=== PATIENT | female | born 1990 | race Caucasian/White ===

== ENCOUNTER 2016-04-19 08:04 | Outpatient (RCR) | payer BC, OTHER, MEDICAID ==
[~2016-04-19 08:04] MED LIST: ACHD5005 PO; ALLERGY MED; ANTIBIOTIC; AZIT500T PO; BISM262T13 PO; BUTA1TAB55 PO; CEFU500T PO; CEPH500C PO; CLIN-62; CRS350T PO; CYCL10TA9 PO; CYCL5TAB PO; DOCU100C37 PO; DOCU100T7 PO; ESCI10TA PO; ESCI5TAB PO; ESCT10T PO; FAMO20TA5; FAMO20TA5 PO; FLUO20CA25 PO; HYDR-3583 PO; HYDR-3812 PO; HYDR1CAP2 PO; HYDR50CA PO; IBP600T1 PO; IBP800T PO; IBUP-1780 PO; LNS30CCR PO; MECL-106 PO; METH5TAB5 PO; METR70GE17 VG; MULT-963 PO; NAPR-243 PO; NAPR500T PO; NAPR550T PO; NITR-65 PO; NITR100C3 PO; OMEP-10 GT; OMEP-10 PO; OMEP20CA6; OMEP20CA6 PO; OMEP20TA33 PO; OMEP40CA36 PO; ONDA8TAB13 PO; OXYC-465 PO; PNT40TEC PO; PNV; PNV1TAB.5 PO; POTA10TA10 PO; PRD20T PO; PREN1TAB25 PO; PREN1TAB39; PREN1TAB39 PO; RNT150T PO; TRAM50TA2 PO; TRM50T PO; Tylenol #3 PO; [UNRECOGNIZED DRUG - CODE] PO; [UNRECOGNIZED DRUG - CODE] PO; [UNRECOGNIZED DRUG - OTHER]
== END 2016-07-18 | disposition home or self-care (01) ==
LOC: CARD 08:04
PROVIDERS: ATTEND Nurse Practitioner Family
DX: R00.2 Palpitations (principal); R42 Dizziness and giddiness
CPT/HCPCS: 93225; 93226

== ENCOUNTER → 2016-05-30 | Outpatient (CLI) | payer BC, OTHER, MEDICAID ==
[2016-06-01 09:15] LABS: NUMBER HOURS COLLECT 24 HOURS; URINE VOLUME CAT 1900 ML; URINE VOLUME REF 1900 ML
[2016-06-03 16:26] LABS: NOREPINEPHRINE RANDOM URINE 18 ug/L
[2016-06-03 16:27] LABS: EPINEPHERINE URINE 4 UG/DAY (1-7)
[2016-06-03 16:28] LABS: CREATININE CAT FR MG/DL 69 MG/DL
[2016-06-03 16:29] LABS: CATECHOLAMINES URINE INTERP SEE FOOTNOTE; DOPAMINE RATIO 114 UG/G CRT (0-250); NOREPINEPHRINE RATIO 26 UG/G CRT (0-45)
[2016-06-03 16:30] LABS: CREATININE CATECHOLAMINES MG/D 1311 MG/D (700-1600)
[2016-06-07 08:33] LABS: METANEPHRINES URINE 91 ug/day (39-143); NORMETANEPHRINES RATIO 181 UG/G CRT (0-400)
[2016-06-07 08:34] LABS: NORMETANEPHRINES URINE 247 ug/day (109-393)
[2016-06-07 08:35] LABS: NETANEPHRINES INTERP SEE FOOTNOTE
[2016-06-07 08:36] LABS: METANEPHRINES RATIO 67 UG/G CRT (0-300)
[2016-06-07 08:37] LABS: CREATININE METANEPHRINES MG/DL 72 MG/DL
[2016-06-07 08:38] LABS: META CREAT URINE 1368 MG/D (700-1600)
[2016-06-07 08:45] LABS: MISC LAB TEST & RESULT 24 HR HISTAMINE
== END ==
LOC: LABNPT 12:47
PROVIDERS: ATTEND Family Medicine
DX: R40.1 Stupor (principal)
CPT/HCPCS: 82384; 82570; 83088; 83835

== ENCOUNTER → 2016-06-01 | Outpatient (CLI) | payer BC, MEDICAID ==
[2016-06-01 17:31] LABS: MEAN PLATELET VOLUME 11.1 FL (7.4-10.4); RED BLOOD COUNT 4.57 10^6/uL (4.35-5.85); RED CELL DISTRIBUTION WIDTH 12.7 % (10.0-14.5); WHITE BLOOD COUNT 9.9 10^3/uL (4.3-11.0)
[2016-06-01 18:07] LABS: THYROID STIMULATING HORMONE 0.84 UIU/ML (0.35-4.94)
[2016-06-07 08:02] LABS: TRYPTAS 4.4 ug/L (<=10.9)
== END ==
LOC: LAB 16:56
PROVIDERS: ATTEND Internal Medicine Endocrinology, Diabetes & Metabolism
DX: R40.1 Stupor (principal)
CPT/HCPCS: 36415; 83036; 83520; 84439; 84443; 84480; 85027

== ENCOUNTER 2016-08-09 20:35 | Outpatient (CLI) | payer BC, MEDICAID | END 2016-08-10 06:30 | disposition home or self-care (01) | LOC: SLEEP 20:35 | PROVIDERS: ATTEND Psychiatry & Neurology Neurology | DX: G47.10 Hypersomnia, unspecified (principal); R06.83 Snoring; G47.61 Periodic limb movement disorder; R42 Dizziness and giddiness | CPT/HCPCS: 95810 ==

== ENCOUNTER 2016-12-02 17:31 | Outpatient (CLI) | payer BC, MEDICAID ==
[2016-12-02] MEDS: ONDANSETRON 4 MG/2 ML (SDV) Z0FRAN IVP ONE ×2 (17:45→18:45)
[2016-12-02 18:17] LABS: BASOPHILS % (AUTO) 0 % (0-10); EOSINOPHILS # (AUTO) 0.1 10^3/uL (0.0-0.3); EOSINOPHILS % (AUTO) 1 % (0-10); LYMPHOCYTES # (AUTO) 2.7 X 10^3 (1.0-4.0); LYMPHOCYTES % (AUTO) 23 % (12-44); MEAN CORPUSCULAR HEMOGLOBIN 30 PG (25-34); MEAN CORPUSCULAR HGB CONC 34 G/DL (32-36); MEAN CORPUSCULAR VOLUME 88 FL (80-99); MEAN PLATELET VOLUME 11.4 FL (7.4-10.4); MONOCYTES # (AUTO) 1.3 X 10^3 (0.0-1.0); MONOCYTES % (AUTO) 10 % (0-12); NEUTROPHILS # (AUTO) 8.1 X 10^3 (1.8-7.8); NEUTROPHILS % (AUTO) 67 % (42-75); PLATELET COUNT 285 10^3/uL (130-400); RED BLOOD COUNT 4.55 10^6/uL (4.35-5.85); RED CELL DISTRIBUTION WIDTH 13.7 % (10.0-14.5); WHITE BLOOD COUNT 12.2 10^3/uL (4.3-11.0)
[2016-12-02 18:20] VITALS: BP 138/92
[2016-12-02 18:41] LABS: ALANINE AMINOTRANSFERASE 16 U/L (0-55); ALBUMIN 3.8 GM/DL (3.2-4.5); ANION GAP 9 MMOL/L (5-14); ASPARTATE AMINO TRANSFERASE 13 U/L (5-34); BILIRUBIN,TOTAL 0.3 MG/DL (0.1-1.0); BLOOD UREA NITROGEN 10 MG/DL (7-18); BUN/CREATININE RATIO 13; CALCIUM 8.9 MG/DL (8.5-10.1); CARBON DIOXIDE 21 MMOL/L (21-32); CHLORIDE 108 MMOL/L (98-107); CREATININE SERUM 0.75 MG/DL (0.60-1.30); GFR ESTIMATED > 60; GLUCOSE 84 MG/DL (70-105); POTASSIUM 3.4 MMOL/L (3.6-5.0); SODIUM 138 MMOL/L (135-145)
[2016-12-02] MEDS: D5 LR IV SOLUTION 1,000 ML IV SCH ×2 (18:45→22:48)
[2016-12-02 18:54] LABS: BILIRUBIN,URINE NEGATIVE (NEGATIVE); KETONES,URINE NEGATIVE (NEGATIVE); LEUKOCYTE ESTERASE ,URINE NEGATIVE (NEGATIVE); NITRITE,URINE NEGATIVE (NEGATIVE); PH,URINE 6 (5-9); PROTEIN,URINE 1+ (NEGATIVE); UROBILINOGEN,URINE 1 MG/DL (NORMAL)
[2016-12-02 19:12] LABS: WBC,URINE RARE /HPF
[2016-12-02 20:00] VITALS: BP 136/81
[2016-12-02] MEDS ORDERED: ACETAMINOPHEN 500 MG TAB (TYLENOL) PO PRN (21:30)
[2016-12-02] MEDS ORDERED: ONDANSETRON 8 MG (ZOFRAN) ORAL DISSOLVE TAB PO PRN (21:30)
[2016-12-02 23:50] VITALS: BP 128/71
[2016-12-03] MEDS: D5 LR IV SOLUTION 1,000 ML IV SCH ×2 (00:56→06:02)
[2016-12-03 03:31] VITALS: BP 117/67
--- NOTE | 2016-12-03 07:19 | History & Physical ---
History and Physical Date Seen by Provider: Dec 03, 2016 Time Seen by Provider: 07:16 this patient is a 26-year-old white female admitted last evening at 7+ weeks gestation with hyperemesis gravidarum. She also was experiencing persistent unrelenting diarrhea. she denied ruptured membranes or bleeding. She's had no other problems with his to date. Allergies are to penicillin Medications are vitamins and likely just Past medical history, past surgical history, obstetric history, family history, and social histories are per the antepartum record Laboratory Tests Test 12/02/16 18:10 12/02/16 18:45 Range/Units White Blood Count 12.2 H 4.3-11.0 10^3/uL Red Blood Count 4.55 4.35-5.85 10^6/uL Hemoglobin 13.5 11.5-16.0 G/DL Hematocrit 40 35-52 % Mean Corpuscular Volume 88 80-99 FL Mean Corpuscular Hemoglobin 30 25-34 PG Mean Corpuscular Hemoglobin Concent 34 32-36 G/DL Red Cell Distribution Width 13.7 10.0-14.5 % Platelet Count 285 130-400 10^3/uL Mean Platelet Volume 11.4 H 7.4-10.4 FL Neutrophils (%) (Auto) 67 42-75 % Lymphocytes (%) (Auto) 23 12-44 % Monocytes (%) (Auto) 10 0-12 % Eosinophils (%) (Auto) 1 0-10 % Basophils (%) (Auto) 0 0-10 % Neutrophils # (Auto) 8.1 H 1.8-7.8 X 10^3 Lymphocytes # (Auto) 2.7 1.0-4.0 X 10^3 Monocytes # (Auto) 1.3 H 0.0-1.0 X 10^3 Eosinophils # (Auto) 0.1 0.0-0.3 10^3/uL Basophils # (Auto) 0.0 0.0-0.1 10^3/uL Sodium Level 138 135-145 MMOL/L Potassium Level 3.4 L 3.6-5.0 MMOL/L Chloride Level 108 H 98-107 MMOL/L Carbon Dioxide Level 21 21-32 MMOL/L Anion Gap 9 5-14 MMOL/L Blood Urea Nitrogen 10 7-18 MG/DL Creatinine 0.75 0.60-1.30 MG/DL Estimat Glomerular Filtration Rate > 60 BUN/Creatinine Ratio 13 Glucose Level 84 70-105 MG/DL Calcium Level 8.9 8.5-10.1 MG/DL Total Bilirubin 0.3 0.1-1.0 MG/DL Aspartate Amino Transf (AST/SGOT) 13 5-34 U/L Alanine Aminotransferase (ALT/SGPT) 16 0-55 U/L Alkaline Phosphatase 76 40-136 U/L Total Protein 7.0 6.4-8.2 GM/DL Albumin 3.8 3.2-4.5 GM/DL Urine Color YELLOW Urine Clarity CLEAR Urine pH 6 5-9 Urine Specific [place] 1.025 H 1.016-1.022 Urine Protein 1+ H NEGATIVE Urine Glucose (UA) NEGATIVE NEGATIVE Urine Ketones NEGATIVE NEGATIVE Urine Nitrite NEGATIVE NEGATIVE Urine Bilirubin NEGATIVE NEGATIVE Urine Urobilinogen 1 NORMAL MG/DL Urine Leukocyte Esterase NEGATIVE NEGATIVE Urine RBC (Auto) NEGATIVE NEGATIVE Urine RBC NONE /HPF Urine WBC RARE /HPF Urine Squamous Epithelial Cells 2-5 /HPF Urine Crystals NONE /LPF Urine Bacteria NEGATIVE /HPF Urine Casts NONE /LPF Urine Mucus LARGE H /LPF Urine Culture Indicated NO lab work is as noted. Sodium was a bit low. The urine is quite concentrated. Vital signs are as follows Vital Signs Date Time Temp Pulse Resp B/P (MAP) Pulse Ox O2 Delivery O2 Flow Rate FiO2 12/03/16 03:31 98.2 70 20 117/67 100 Room Air 12/02/16 23:50 98.9 83 20 128/71 100 Room Air 12/02/16 20:00 98.0 82 20 136/81 100 Room Air 12/02/16 18:20 98.9 95 20 138/92 98 Room Air I & O 12/03/16 07:00 Intake Total 3050 ml Output Total 1375 ml Balance 1675 ml physical exam HEENT exam is normal Neck is supple no lymphadenopathy no thyromegaly Abdomen is soft nontender nondistended Extremities show no clubbing cyanosis. There is no Homans sign. Pelvic exam is deferred Assessment and plan 7+ week gestation with hyperemesis gravidarum complicated likely by viral gastroenteritis. Patient is markedly improved with hydration and with IV antiemetics. She is tolerating some oral intake now. We will allow discharge home with her to continue her likely descent and Zofran ODT. hyperemesis gravidarum Allergies and Home Medications Allergies Coded Allergies: Penicillins (Unverified Allergy, Mild, 09/13/08) Home Medications Cefuroxime Axetil 500 Mg Tablet, 500 MG PO BID, #14 Prescribed by: TIAGO PEREZ on 03/29/16 2231 Escitalopram Oxalate 10 Mg Tablet, 10 MG PO DAILY, (Reported) Hydroxyzine Pamoate 50 Mg Capsule, 50 MG PO Q6H, #15 Prescribed by: MADELYN MCCLELLAND on 01/07/16 0056 Meclizine HCl 25 Mg Tablet, 25 MG PO TID PRN for DIZZINESS, (Reported) Methimazole 5 Mg Tablet, 15 MG PO Q8H, (Reported) Omeprazole 40 Mg Capsule.dr, 40 MG PO DAILY, (Reported) Omeprazole 40 Mg Capsule.dr, 40 MG PO AC, (Reported) Potassium Chloride 10 Meq Tablet.er, 40 MEQ PO DAILY for 2 Days Prescribed by: TIAGO PEERZ on 12/14/15 1429 DORENE DONG MD Dec 03, 2016 7:19 am
[2016-12-03] MEDS ORDERED: ONDA8TAB13 PO (07:21)
--- NOTE | 2016-12-03 07:22 | Discharge Instructions ---
Discharge Instructions Discharge Medications New, Converted or Re-Newed RX: Other Patient Instructions Patient Instructions: as directed Return to The Hospital For: as directed Activity & Diet Discharge Diet: No Restrictions Activity as Tolerated: Yes Orders-Post D/C & Referrals return to clinic as scheduled for her OB Return to clinic for any persistent/unrelenting nausea vomiting and/or diarrhea DORENE DONG MD Dec 03, 2016 7:22 am
[2016-12-03] MEDS ORDERED: DOXY1TAB3 PO (07:59)
[2016-12-03] MEDS ORDERED: PREN-37 PO (07:59)
[2016-12-03] MEDS ORDERED: DULO60CA6 PO (08:00)
[2016-12-03 08:07] VITALS: BP 128/71
== END 2016-12-03 08:20 | disposition home or self-care (01) ==
LOC: WSo 17:31 → LDRP 17:33 → WSo 12-03 08:20
PROVIDERS: ATTEND Obstetrics & Gynecology
DX: O21.0 Mild hyperemesis gravidarum (principal); Z3A.01 Less than 8 weeks gestation of pregnancy
CPT/HCPCS: 36415; 80053; 81000; 85025; 87088; 96361; 96374; 99214

== ENCOUNTER 2016-12-25 20:55 | Outpatient (CLI) | payer BC, MEDICAID ==
[~2016-12-25 20:55] MED LIST changes: +DOXY1TAB3 PO; +DULO60CA6 PO; +PREN-37 PO
[2016-12-25 21:15] VITALS: BP 142/74
[2016-12-25] MEDS ORDERED: D5 LR IV SOLUTION 1,000 ML IV ONE ×2 (21:27→22:15)
[2016-12-25] MEDS ORDERED: ONDANSETRON 4 MG/2 ML (SDV) Z0FRAN ONE (21:27)
[2016-12-25] MEDS ORDERED: ONDANSETRON 4 MG/2 ML (SDV) Z0FRAN IVP ONE ×2 (22:15)
[2016-12-25 22:16] LABS: BASOPHILS % (AUTO) 0 % (0-10); EOSINOPHILS # (AUTO) 0.1 10^3/uL (0.0-0.3); EOSINOPHILS % (AUTO) 1 % (0-10); LYMPHOCYTES # (AUTO) 2.5 X 10^3 (1.0-4.0); LYMPHOCYTES % (AUTO) 27 % (12-44); MEAN CORPUSCULAR HEMOGLOBIN 30 PG (25-34); MEAN CORPUSCULAR HGB CONC 34 G/DL (32-36); MEAN CORPUSCULAR VOLUME 88 FL (80-99); MEAN PLATELET VOLUME 11.6 FL (7.4-10.4); MONOCYTES # (AUTO) 0.8 X 10^3 (0.0-1.0); MONOCYTES % (AUTO) 9 % (0-12); NEUTROPHILS % (AUTO) 63 % (42-75); PLATELET COUNT 306 10^3/uL (130-400); RED BLOOD COUNT 4.44 10^6/uL (4.35-5.85); RED CELL DISTRIBUTION WIDTH 13.5 % (10.0-14.5); WHITE BLOOD COUNT 9.5 10^3/uL (4.3-11.0)
[2016-12-25 22:16] LABS: BILIRUBIN,URINE NEGATIVE (NEGATIVE); KETONES,URINE 1+ (NEGATIVE); LEUKOCYTE ESTERASE ,URINE NEGATIVE (NEGATIVE); NITRITE,URINE NEGATIVE (NEGATIVE); PH,URINE 5 (5-9); PROTEIN,URINE 1+ (NEGATIVE); UROBILINOGEN,URINE 1 MG/DL (NORMAL)
[2016-12-25 22:23] LABS: WBC,URINE RARE /HPF
[2016-12-25] MEDS ORDERED: D5 LR IV SOLUTION 1,000 ML IV SCH (23:45)
--- NOTE | 2016-12-27 13:22 | Physician Query-Final Dx ---
JEREMIAH WILSON 12/27/16 1322: Clinic Account Progress/Dx Physician Query: Please give diagnosis Date of Service Dec 25, 2016 at 20:55 DORENE DONG MD 12/27/16 1438: Clinic Account Progress/Dx DIAGNOSIS: Diagnosis hyperemesis due to JEREMIAH WILSON Dec 27, 2016 13:22 DORENE DONG MD Dec 27, 2016 14:38
== END 2016-12-26 00:45 | disposition home or self-care (01) ==
LOC: WSo 20:55 → LDRP 20:55 → WSo 12-26 00:45
PROVIDERS: ATTEND Obstetrics & Gynecology
DX: O21.0 Mild hyperemesis gravidarum (principal); Z3A.11 11 weeks gestation of pregnancy
CPT/HCPCS: 36415; 81000; 85025; 96361; 96374; 96376; 99213

== ENCOUNTER 2017-03-05 02:33 | Emergency (ER) | payer BC, MEDICAID ==
[~2017-03-05] VITALS: Ht 160 cm; Wt 101.6 kg
[2017-03-05] MEDS ORDERED: BENZONATATE 100 MG (TESSALON) CAPSULE PO ONE (04:12)
--- NOTE | 2017-03-05 04:12 | ED Cough/URI ---
General Chief Complaint: Cardiac/General Problems Stated Complaint: POSS PNEUMONIA,BP 153/96,STS HAS WALKING PNA Nursing Triage Note: PT AMBULATED TO ROOM. PT STATES SINCE APPROX. 0200 TODAY SHE HAS BEEN HAVING CHEST BURNING AND TREMORS AND HAD A HIGH BLOOD PRESSURE OF 153/83. PT STATES SHE DOESN'T USUALLY SMOKE BUT SHE DID HAVE 4 CIGERETTES TODAY. PT STATES SHE WAS SEEN BY A DR. AND SHE DOES HAVE PNEUMONIA. Allergies and Home Medications Allergies Coded Allergies: Penicillins (Unverified Allergy, Mild, 09/13/08) Home Medications Doxylamine/Pyridoxine HCl 1 Each Tablet.dr, 1 EACH PO QID PRN for NAUSEA/ VOMITING-1ST LINE, (Reported) Ondansetron 8 Mg Tab.rapdis, 8 MG PO Q6H PRN for NAUSEA/VOMITING-1ST LINE, #20 Prescribed by: DORENE FUENTES on 12/03/16 0721 Vit/Iron Fumarate/FA 1 Each Tablet, 1 EACH PO, (Reported) Past Zoqcxcw-Dpnusg-Sjymul Hx Patient Social History Alcohol Use: Denies Use Recreational Drug Use: No Smoking Status: Former Smoker Type Used: Cigarettes Former Smoker, Quit: May 16, 2013 2nd Hand Smoke Exposure: No Recent Foreign Travel: No Contact w/Someone Who Travel: No Recent Infectious Disease Expo: No Recent Hopitalizations: No Physical Abuse: No Sexual Abuse: No Immunizations Up To Date Tetanus Booster (TDap): More than 5yrs PED Vaccines UTD: No Date of Influenza Vaccine: Feb 13, 2015 Seasonal Allergies Seasonal Allergies: No Surgeries History of Surgeries: Yes (egd, colonoscopy) Surgeries: Appendectomy, Section, Gallbladder Respiratory History of Respiratory Disorde: No Currently Using CPAP: No Currently Using BIPAP: No Cardiovascular History of Cardiac Disorders: Yes (SEES [employer] [facility] DUE TO MOTHER HAVING CHF AT YOUNG AGE) Cardiac Disorders: Heart Murmur Neurological History of Neurological Disord: No Reproductive System Hx Reproductive Disorders: No Sexually Transmitted Disease: No HIV/AIDS: No Female Reproductive Disorders: Denies Genitourinary History of Genitourinary Disor: No Gastrointestinal History of Gastrointestinal Di: Yes Gastrointestinal Disorders: Gastroesophageal Reflux Musculoskeletal History of Musculoskeletal Dis: No Endocrine History of Endocrine Disorders: Yes (undiagnosed thyriod issue, due to see a statistics teacher) HEENT History of HEENT Disorders: No Loss of Vision: Denies Hearing Impairment: Denies Cancer History of Cancer: No Psychosocial History of Psychiatric Problem: Yes Behavioral Health Disorders: Anxiety, Depression Suicide Risk Score: 0 Integumentary History of Skin or Integumenta: No Blood Transfusions History of Blood Disorders: No Adverse Reaction to a Blood Tr: No Family Medical History Significant Family History: No Pertinent Family Hx, Diabetes Family Medial History: Cardiovascular disease 19 MOTHER, G8 BROTHER Hypercholesterolemia 19 MOTHER, Hypertension 19 MOTHER, Thyroid disease G8 BROTHER Physical Exam Vital Signs Vital Sign - Last 12Hours 03/05/17 02:53 Temp 98.0 Pulse 98 Resp 20 B/P (MAP) 155/90 Pulse Ox 100 O2 Delivery Room Air Capillary Refill : Less Than 3 Seconds Progress/Results/Core Measures Results/Orders Micro Results Microbiology 03/05/17 Influenza Types A,B Antigen (YURY) - Final, Complete My Orders Orders - MADELYN MCCLELLAND DO Influenza A And B Antigens (03/05/17 03:04) Chest Pa/Lat (2 View) (03/05/17 03:04) Rocephin 1000mg Im (03/05/17 04:15) Lidocaine 1% Injection (Xylocaine 1% Inj (03/05/17 04:15) Benzonatate Capsule (Tessalon Perles) (03/05/17 09:00) Vital Signs/I&O Vital Sign - Last 12Hours 03/05/17 02:53 Temp 98.0 Pulse 98 Resp 20 B/P (MAP) 155/90 Pulse Ox 100 O2 Delivery Room Air Blood Pressure Mean: 111 Departure Impression Impression: Primary Impression: Acute bronchitis Additional Impression: Sinusitis Disposition: 01 HOME, SELF-CARE Condition: Stable Departure-Patient Inst. Referrals: JANIE MANCIA MD (PCP/Family) Primary Care Physician Patient Instructions: Acute Bronchitis, Adult (DC), Sinusitis, Adult (DC) Add. Discharge Instructions: CONTINUE DOXYCYCLINE STOP SUDAFED IF IT IS CAUSING ANXIETY OVER THE COUNTER CLARITIN 10 MG OR ZYRTEC 10 MG DAILY FOR NASAL DRAINAGE TYLENOL AND MOTRIN NEEDED FOR PAIN OR FEVER FOLLOW UP WITH YOUR DR ON TUESDAY IF NO BETTER All discharge instructions reviewed with patient and/or family. Voiced understanding. Scripts Fluticasone Propionate (Flonase Allergy Relief) 9.9 Ml [place].susp 2 SPRAYS NS BID, #1 SPRAY Prov: MADELYN MCCLELLAND DO 03/05/17 Prednisone (Prednisone) 10 Mg Tab 30 MG PO DAILY, #9 TAB Prov: MADELYN MCCLELLAND DO 03/05/17 Benzonatate (Tessalon Perle) 100 Mg Capsule 1-2 TAB PO TID for Cough, #30 CAP Prov: MADELYN MCCLELLAND DO 03/05/17 Guaifenesin/Dextromethorphan (Mucinex Dm ER 1,200-60 mg Tab) 1 Each Tbmp.12hr 1 EACH PO BID for 10 Days, #20 EA Prov: MADELYN MCCLELLAND DO 03/05/17 MADELYN MCCLELLAND DO Mar 05, 2017 04:11
[2017-03-05] MEDS ORDERED: FLUT9.9S NS (04:15)
[2017-03-05] MEDS ORDERED: BENZ-13 PO (04:15)
[2017-03-05] MEDS ORDERED: PRD10T PO (04:15)
[2017-03-05] MEDS ORDERED: LIDOCAINE 1% INJ 20 ML (XYLOCAINE) VIAL INJ ONE (04:15)
[2017-03-05] MEDS ORDERED: GUAI1TBM19 PO (04:15)
[2017-03-05] MEDS ORDERED: cefTRIAXone 1 GM (ROCEPHIN) VIAL IM ONE (04:15)
[2017-03-05 04:34] VITALS: BP 119/80
--- NOTE | 2017-03-05 07:33 | Diagnostic Imaging Report ---
INDICATION: Chest pain COMPARISON: 04/16/2016 FINDINGS: Two views of the chest were obtained. Heart size is normal. The pulmonary vessels appear unremarkable. There is no pneumothorax, mediastinal widening or pleural fluid demonstrated. The lungs are clear. The osseous structures appear unremarkable. IMPRESSION: Negative chest Dictated by: Dictated on workstation # [id number]
[2017-03-05] MEDS ORDERED: BENZONATATE 100 MG (TESSALON) CAPSULE PO SCH (09:00)
== END 2017-03-05 04:34 | disposition home or self-care (01) ==
LOC: EDUNIT# 02:33 → ER 02:36
DX: J20.9 Acute bronchitis, unspecified (principal); J32.9 Chronic sinusitis, unspecified; F41.9 Anxiety disorder, unspecified; F32.9 Major depressive disorder, single episode, unspecified; K21.9 Gastro-esophageal reflux disease without esophagitis; Z90.49 Acquired absence of other specified parts of digestive tract; Z87.891 Personal history of nicotine dependence; Z82.49 Family history of ischemic heart disease and other diseases of the circulatory system
CPT/HCPCS: 71020; 87804; 96372; 99284

== ENCOUNTER 2017-04-04 16:36 | Emergency (ER) | payer BC, MEDICAID ==
[~2017-04-04] VITALS: Ht 160 cm; Wt 108.9 kg
[~2017-04-04 16:36] MED LIST changes: +BENZ-13 PO; +FLUT9.9S NS; +GUAI1TBM19 PO; +PRD10T PO
--- NOTE | 2017-04-04 17:42 | ED General ---
General Chief Complaint: Chest Pain Stated Complaint: CP/SOB Nursing Triage Note: PATIENT STATES THAT SHE WOKE UP IN THE MIDDLE OF THE NIGHT WITH SHARP PAIN IN HER LEFT CHEST. SHE IS UNSURE IF THE PAIN IS CONSTANT. SHE STATES SHE "HAS NOT FELT RIGHT ALL DAY." PATIENT WAS TEARFUL TODAY DURING ASSESSMENT AND STATED "IM REALLY STRESSED OUT." SHE ALSO NOTED THAT SHE IS DUE TO SEE HER RESEARCH ATTORNEY. SHE DOES NOT HAVE A HX OF HEART ISSUES BUT HER MOTHER OF CHF AT A YOUNG AGE AND SHE SEES CARDIOLOGY PREVENTATIVELY. Nursing Sepsis Screen: No Definite Risk Source of Information: Patient Exam Limitations: No Limitations History of Present Illness Time Seen by Provider: 17:41 Allergies and Home Medications Allergies Coded Allergies: Penicillins (Unverified Allergy, Mild, 09/13/08) Home Medications Benzonatate 100 Mg Capsule, 1-2 TAB PO TID, #30 Prescribed by: MADELYN MCCLELLAND on 03/05/17 0415 Doxylamine/Pyridoxine HCl 1 Each Tablet.dr, 1 EACH PO QID PRN for NAUSEA/ VOMITING-1ST LINE, (Reported) Fluticasone Propionate 9.9 Ml [place].susp, 2 SPRAYS NS BID, #1 Prescribed by: MADELYN MCCLELLAND on 03/05/17 0415 Guaifenesin/Dextromethorphan 1 Each Tbmp.12hr, 1 EACH PO BID for 10 Days, #20 Prescribed by: MADELYN MCCLELLAND on 03/05/17 041 Hydroxyzine Pamoate 25 Mg Capsule, 25 MG PO Q6H PRN for ANXIETY, #30 Ref 0 Prescribed by: YOANA SILVA on 04/04/172116 Ondansetron 8 Mg Tab.rapdis, 8 MG PO Q6H PRN for NAUSEA/VOMITING-1ST LINE, #20 Prescribed by: DORENE FUENTES on 12/03/16 0721 Prednisone 10 Mg Tab, 30 MG PO DAILY, #9 Prescribed by: MADELYN MCCLELLAND on 03/05/17 0415 Vit/Iron Fumarate/FA 1 Each Tablet, 1 EACH PO, (Reported) Past Xtuzbaw-Fryvua-Aruwij Hx Patient Social History Alcohol Use: Denies Use Recreational Drug Use: No Type Used: Cigarettes Former Smoker, Quit: May 16, 2013 2nd Hand Smoke Exposure: No Recent Foreign Travel: No Contact w/Someone Who Travel: No Recent Infectious Disease Expo: No Recent Hopitalizations: No Physical Abuse: No Sexual Abuse: No Immunizations Up To Date Tetanus Booster (TDap): More than 5yrs PED Vaccines UTD: No Date of Influenza Vaccine: Feb 13, 2015 Seasonal Allergies Seasonal Allergies: No Surgeries History of Surgeries: Yes (egd, colonoscopy) Surgeries: Appendectomy, Section, Gallbladder Respiratory History of Respiratory Disorde: No Currently Using CPAP: No Currently Using BIPAP: No Cardiovascular History of Cardiac Disorders: Yes (SEES MIG[facility]EL [facility] DUE TO MOTHER HAVING CHF AT YOUNG AGE) Cardiac Disorders: Heart Murmur Neurological History of Neurological Disord: No Reproductive System Hx Reproductive Disorders: Yes Sexually Transmitted Disease: No HIV/AIDS: No Female Reproductive Disorders: Denies Genitourinary History of Genitourinary Disor: No Gastrointestinal History of Gastrointestinal Di: Yes Gastrointestinal Disorders: Gastroesophageal Reflux Musculoskeletal History of Musculoskeletal Dis: No Endocrine History of Endocrine Disorders: Yes (undiagnosed thyriod issue, 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 see a 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 and waiter/waitress) HEENT History of HEENT Disorders: No Loss of Vision: Denies Hearing Impairment: Denies Cancer History of Cancer: No Psychosocial History of Psychiatric Problem: Yes Behavioral Health Disorders: Anxiety, Depression Suicide Risk Score: 0 Integumentary History of Skin or Integumenta: No Blood Transfusions History of Blood Disorders: No Adverse Reaction to a Blood Tr: No Family Medical History Significant Family History: No Pertinent Family Hx, Diabetes Family Medial History: Cardiovascular disease 19 MOTHER, G8 BROTHER Hypercholesterolemia 19 MOTHER, Hypertension 19 MOTHER, Thyroid disease G8 BROTHER Physical Exam Vital Signs Vital Sign - Last 12Hours 04/04/17 16:40 Temp 97.8 Pulse 121 Resp 22 B/P (MAP) 142/102 Pulse Ox 90 Capillary Refill : Less Than 3 Seconds Progress/Results/Core Measures Suspected Sepsis Recent Fever Within 48 Hours: No Infection Criteria Present: None New/Unexplained Altered Menta: No Sepsis Screen: No Definite Risk Sepsis Diagnosis: SIRS Temperature:97.8 Pulse: 121 Respiratory Rate: 22 Laboratory Tests 04/04/17 18:23: White Blood Count 13.2H Blood Pressure 142 /102 Mean: 115 Laboratory Tests 04/04/17 18:23: Creatinine 0.83, Platelet Count 322, Total Bilirubin 0.4 Results/Orders Lab Results Laboratory Tests Test 04/04/17 18:13 04/04/17 18:23 Range/Units Urine Color YELLOW Urine Clarity CLEAR Urine pH 5 5-9 Urine Specific [place] 1.015 L 1.016-1.022 Urine Protein NEGATIVE NEGATIVE Urine Glucose (UA) NEGATIVE NEGATIVE Urine Ketones NEGATIVE NEGATIVE Urine Nitrite NEGATIVE NEGATIVE Urine Bilirubin NEGATIVE NEGATIVE Urine Urobilinogen NORMAL NORMAL MG/DL Urine Leukocyte Esterase NEGATIVE NEGATIVE Urine RBC (Auto) 5+ H NEGATIVE Urine RBC 10-25 H /HPF Urine WBC NONE /HPF Urine Squamous Epithelial Cells 0-2 /HPF Urine Crystals NONE /LPF Urine Bacteria NONE /HPF Urine Casts NONE /LPF Urine Mucus NEGATIVE /LPF Urine Culture Indicated NO Urine Test NEGATIVE NEGATIVE Urine Opiates Screen NEGATIVE NEGATIVE Urine Oxycodone Screen NEGATIVE NEGATIVE Urine Methadone Screen NEGATIVE NEGATIVE Urine Propoxyphene Screen NEGATIVE NEGATIVE Urine Barbiturates Screen NEGATIVE NEGATIVE Ur Tricyclic Antidepressants Screen NEGATIVE NEGATIVE Urine Phencyclidine Screen NEGATIVE NEGATIVE Urine Amphetamines Screen NEGATIVE NEGATIVE Urine Methamphetamines Screen NEGATIVE NEGATIVE Urine Benzodiazepines Screen NEGATIVE NEGATIVE Urine Cocaine Screen NEGATIVE NEGATIVE Urine Cannabinoids Screen NEGATIVE NEGATIVE White Blood Count 13.2 H 4.3-11.0 10^3/uL Red Blood Count 4.82 4.35-5.85 10^6/uL Hemoglobin 14.7 11.5-16.0 G/DL Hematocrit 43 35-52 % Mean Corpuscular Volume 89 80-99 FL Mean Corpuscular Hemoglobin 31 25-34 PG Mean Corpuscular Hemoglobin Concent 34 32-36 G/DL Red Cell Distribution Width 12.8 10.0-14.5 % Platelet Count 322 130-400 10^3/uL Mean Platelet Volume 11.7 H 7.4-10.4 FL Neutrophils (%) (Auto) 70 42-75 % Lymphocytes (%) (Auto) 23 12-44 % Monocytes (%) (Auto) 7 0-12 % Eosinophils (%) (Auto) 1 0-10 % Basophils (%) (Auto) 0 0-10 % Neutrophils # (Auto) 9.2 H 1.8-7.8 X 10^3 Lymphocytes # (Auto) 3.0 1.0-4.0 X 10^3 Monocytes # (Auto) 0.9 0.0-1.0 X 10^3 Eosinophils # (Auto) 0.1 0.0-0.3 10^3/uL Basophils # (Auto) 0.0 0.0-0.1 10^3/uL Sodium Level 140 135-145 MMOL/L Potassium Level 3.5 L 3.6-5.0 MMOL/L Chloride Level 106 98-107 MMOL/L Carbon Dioxide Level 23 21-32 MMOL/L Anion Gap 11 5-14 MMOL/L Blood Urea Nitrogen 11 7-18 MG/DL Creatinine 0.83 0.60-1.30 MG/DL Estimat Glomerular Filtration Rate > 60 BUN/Creatinine Ratio 13 Glucose Level 82 70-105 MG/DL Calcium Level 9.7 8.5-10.1 MG/DL Total Bilirubin 0.4 0.1-1.0 MG/DL Aspartate Amino Transf (AST/SGOT) 20 5-34 U/L Alanine Aminotransferase (ALT/SGPT) 29 0-55 U/L Alkaline Phosphatase 77 40-136 U/L Troponin I < 0.30 <0.30 NG/ML Total Protein 7.8 6.4-8.2 GM/DL Albumin 4.3 3.2-4.5 GM/DL TSH [place] Testing 1.42 0.35-4.94 UIU/ML Salicylates Level < 5.0 L 5.0-20.0 MG/DL Acetaminophen Level < 10 L 10-30 UG/ML Serum Alcohol < 10 <10 MG/DL My Orders Orders - YOANA SILVA Ua Culture If Indicated (04/04/17 18:02) Cbc With Automated Diff (04/04/17 18:02) Comprehensive Metabolic Panel (04/04/17 18:02) Alcohol (04/04/17 18:02) Drug Screen Stat (Urine) (04/04/17 18:02) Acetaminophen (04/04/17 18:02) Salicylate (04/04/17 18:02) Ekg Tracing (04/04/17 18:02) Hcg,Qualitative Urine (04/04/17 18:02) Saline Lock/Iv-Start (04/04/17 18:02) Thyroid Analyzer (04/04/17 18:02) Troponin I (04/04/17 18:02) Lorazepam Injection (Ativan Injection) (04/04/17 19:00) Ns Iv 1000 Ml (Sodium Chloride 0.9%) (04/04/17 19:28) Chest Pa/Lat (2 View) (04/04/17 19:37) Orphenadrine Injection (Norflex Injectio (04/04/17 20:24) Us Non Ob Pelvis Comp/Transvag (04/04/17 19:37) Medications Given in ED Current Medications Medications Dose Ordered Sig/Jamey Route Start Time Stop Time Status Last Admin Dose Admin Lorazepam 1 mg ONCE ONCE IVP 04/04/17 19:00 04/04/17 19:01 DC 04/04/17 19:07 1 MG Sodium Chloride 1,000 ml @ 0 mls/hr Q0M ONCE IV 04/04/17 19:28 04/04/17 19:31 DC 04/04/17 19:41 0 MLS/HR Vital Signs/I&O Vital Sign - Last 12Hours 04/04/17 16:40 Temp 97.8 Pulse 121 Resp 22 B/P (MAP) 142/102 Pulse Ox 90 Capillary Refill : Less Than 3 Seconds Blood Pressure Mean: 115 ECG Initial ECG Impression Date: Apr 04, 2017 Initial ECG Impression Time: 18:29 Initial ECG Rate: 68 Initial ECG Rhythm: Normal Sinus Initial ECG Intervals: Normal Initial ECG Impression: Normal Initial ECG Comparisson: No Previous ECG Available Comment Sinus rhythm. No STEMI or arrhythmia noted. ECG reviewed and discussed with Humberto Molina MD. Diagnostic Imaging Diagonstic Imaging: Xray Plain Films/CT/US/NM/MRI: chest Comments FINDINGS: Normal heart size and pulmonary vascularity. No focal pulmonary opacity, pleural effusion or pneumothorax. Osseous structures are unremarkable. No significant change. IMPRESSION: Negative chest. Dictated on workstation # [id number] Reviewed: Reviewed by Me (radiology report reviewed by me) Diagonstic Imaging: Ultrasound Plain Films/CT/US/NM/MRI: pelvis Comments FINDINGS: Normal echogenicity of the uterus which measures 8.9 x 6.0 x 4.8 cm. Normal echogenicity of the endometrium which measures up to 1.0 cm. The right ovary measures 4.3 x 2.5 x 2.5 cm. There is a simple appearing right ovarian cyst measuring 1.6 cm. There is a second cyst with reticular echoes within the right ovary measuring up to 2.3 cm. Normal flow by color Doppler in the right ovary. The left ovary is not visualized. No free fluid in the pelvis. IMPRESSION : 1. The left ovary is not visualized. 2. Benign 1.6 cm simple cyst and a 2.3 cm hemorrhagic cyst within the right ovary. 3. Normal appearing uterus and endometrium. No free fluid in the pelvis. Dictated on workstation # [id number] Reviewed: Reviewed by Me (radiology report reviewed by me) Departure Communication (Admissions) Progress Notes 2[address] Impression Impression: Primary Impression: Chest wall pain Additional Impressions: Ovarian cyst Adjustment reaction with anxiety and depression Disposition: HOME, SELF-CARE Condition: Improved Departure-Patient Inst. Decision time for Depature: 21:14 Referrals: JANIE MANCIA MD (PCP/Family) Primary Care Physician Patient Instructions: Anxiety, Adult (DC), Costochondritis (DC), Dehydration, Adult (DC), Ovarian Cyst (DC) Add. Discharge Instructions: All discharge instructions reviewed with patient and/or family. Voiced understanding. Medications as instructed. Continue usual home medications. Expect a call from [facility] tomorrow morning to schedule an outpatient appointment this week. Follow-up with your primary care provider for recheck as an outpatient. Return to the emergency department for worsened pain, fever, shortness of air, dizziness, changes in behavior, slurred speech, weakness, vomiting, or any other concerns. crisis line [phone] Scripts Hydroxyzine Pamoate (Hydroxyzine Pamoate) 25 Mg Capsule 25 MG PO Q6H Y for ANXIETY, #30 CAP 0 Refills Prov: YOANA SILVA 04/04/17 Work/School Note: Work Release Form Date Seen in the Emergency Department: Apr 04, 2017 Return to Work: Apr 06, 2017 YOANA SILVA Apr 04, 2017 17:41
[2017-04-04 18:21] LABS: BILIRUBIN,URINE NEGATIVE (NEGATIVE); KETONES,URINE NEGATIVE (NEGATIVE); LEUKOCYTE ESTERASE ,URINE NEGATIVE (NEGATIVE); NITRITE,URINE NEGATIVE (NEGATIVE); PH,URINE 5 (5-9); PROTEIN,URINE NEGATIVE (NEGATIVE); UROBILINOGEN,URINE NORMAL (NORMAL)
[2017-04-04 18:32] LABS: SQUAMOUS EPITHELIAL CELL,UR 0-2 /HPF
[2017-04-04 18:34] LABS: BASOPHILS % (AUTO) 0 % (0-10); EOSINOPHILS # (AUTO) 0.1 10^3/uL (0.0-0.3); EOSINOPHILS % (AUTO) 1 % (0-10); LYMPHOCYTES % (AUTO) 23 % (12-44); MEAN CORPUSCULAR HEMOGLOBIN 31 PG (25-34); MEAN CORPUSCULAR HGB CONC 34 G/DL (32-36); MEAN CORPUSCULAR VOLUME 89 FL (80-99); MEAN PLATELET VOLUME 11.7 FL (7.4-10.4); MONOCYTES # (AUTO) 0.9 X 10^3 (0.0-1.0); MONOCYTES % (AUTO) 7 % (0-12); NEUTROPHILS # (AUTO) 9.2 X 10^3 (1.8-7.8); NEUTROPHILS % (AUTO) 70 % (42-75); PLATELET COUNT 322 10^3/uL (130-400); RED BLOOD COUNT 4.82 10^6/uL (4.35-5.85); RED CELL DISTRIBUTION WIDTH 12.8 % (10.0-14.5); WHITE BLOOD COUNT 13.2 10^3/uL (4.3-11.0)
--- OUTSIDE RECORDS SUMMARY | 2017-04-04 18:41 | XMS REPORT ---
Author Author TATIANA CHAVEZ Organization [employer] Address Unknown Phone Unavailable Care Team Providers Care Assurance Engineer Name Role Phone TATIANA CHAVEZ CP Unavailable Allergies No Known Allergies Problems Problem Type Condition Code Onset Dates Condition Status Problem Screening for malignant neoplasm of the cervix V76.2 Active Problem Unspecified breast screening V76.10 Active Problem Anxiety associated with depression F41.8 Active Assessment Visit for TB skin test Z11.1 Active Problem Other symptoms referable to back 724.8 Active Problem Abdominal pain, other specified site 789.09 Active Medications No Known Medications Procedures Procedure Coding System Code Date TB INTRADERMAL TEST CPT-4 33628 Jan 07, 2016 Results No Known Results Summary Purpose [employer] Submission
[2017-04-04 18:57] LABS: ALANINE AMINOTRANSFERASE 29 U/L (0-55); ALBUMIN 4.3 GM/DL (3.2-4.5); ALCOHOL < 10 MG/DL (<10); ANION GAP 11 MMOL/L (5-14); ASPARTATE AMINO TRANSFERASE 20 U/L (5-34); BILIRUBIN,TOTAL 0.4 MG/DL (0.1-1.0); BLOOD UREA NITROGEN 11 MG/DL (7-18); BUN/CREATININE RATIO 13; CALCIUM 9.7 MG/DL (8.5-10.1); CARBON DIOXIDE 23 MMOL/L (21-32); CHLORIDE 106 MMOL/L (98-107); CREATININE SERUM 0.83 MG/DL (0.60-1.30); GFR ESTIMATED > 60; GLUCOSE 82 MG/DL (70-105); POTASSIUM 3.5 MMOL/L (3.6-5.0); SALICYLATE < 5.0 MG/DL (5.0-20.0); SODIUM 140 MMOL/L (135-145); TOTAL PROTEIN 7.8 GM/DL (6.4-8.2)
[2017-04-04 18:59] LABS: ACETAMINOPHEN < 10 UG/ML (10-30)
[2017-04-04] MEDS ORDERED: LORazepam INJ 2 MG/ML (ATIVAN) VIAL IVP ONE (19:00)
[2017-04-04 19:03] LABS: TROPONIN I < 0.30 NG/ML (<0.30)
[2017-04-04] MEDS ORDERED: NS IV 1000 ML 1,000 ML IV ONE (19:28)
--- NOTE | 2017-04-04 20:23 | Diagnostic Imaging Report ---
EXAM: CHEST PA/LAT (2 VIEW) INDICATION: Chest pain. COMPARISON: Chest radiograph 03/05/2017. FINDINGS: Normal heart size and pulmonary vascularity. No focal pulmonary opacity, pleural effusion or pneumothorax. Osseous structures are unremarkable. No significant change. IMPRESSION: Negative chest. Dictated by: Dictated on workstation # [id number]
[2017-04-04] MEDS ORDERED: ORPHENADRINE 60 MG/2 ML (NORFLEX) AMP IV STA (20:24)
--- NOTE | 2017-04-04 20:59 | Diagnostic Imaging Report ---
EXAM: US NON OB PELVIS COMP/TRANSVAG INDICATION: Pelvic pain. History of retained products of conception. COMPARISON: None. FINDINGS: Normal echogenicity of the uterus which measures 8.9 x 6.0 x 4.8 cm. Normal echogenicity of the endometrium which measures up to 1.0 cm. The right ovary measures 4.3 x 2.5 x 2.5 cm. There is a simple appearing right ovarian cyst measuring 1.6 cm. There is a second cyst with reticular echoes within the right ovary measuring up to 2.3 cm. Normal flow by color Doppler in the right ovary. The left ovary is not visualized. No free fluid in the pelvis. IMPRESSION: 1. The left ovary is not visualized. 2. Benign 1.6 cm simple cyst and a 2.3 cm hemorrhagic cyst within the right ovary. 3. Normal appearing uterus and endometrium. No free fluid in the pelvis. Dictated by: Dictated on workstation # [id number]
[2017-04-04] MEDS ORDERED: HYDR-3781 PO (21:17)
[2017-04-04] MEDS ORDERED: PRD20T PO (21:36)
[2017-04-04 21:47] VITALS: BP 123/66
== END 2017-04-04 21:44 | disposition home or self-care (01) ==
LOC: EDUNIT# 16:36 → ER 16:37
DX: R07.89 Other chest pain (principal); N83.291 Other ovarian cyst, right side; F43.23 Adjustment disorder with mixed anxiety and depressed mood; K21.9 Gastro-esophageal reflux disease without esophagitis; Z87.891 Personal history of nicotine dependence; Z90.49 Acquired absence of other specified parts of digestive tract; Z87.59 Personal history of other complications of pregnancy, childbirth and the puerperium; Z82.49 Family history of ischemic heart disease and other diseases of the circulatory system
CPT/HCPCS: 36415; 71020; 76830; 76856; 80053; 80306; 80320; 80329; 81000; 84443; 84484; 84703; 85025; 93005; 96361; 96374; 96375

== ENCOUNTER 2017-04-11 08:01 | Outpatient (RCR) | payer BC, MEDICAID ==
[~2017-04-11 08:01] MED LIST changes: +HYDR-3781 PO; -HYDR-3812 PO; +NAPR-1071 PO; -NAPR500T PO
[2017-05-21] MEDS ORDERED: SULF1TAB35 PO (17:50)
== END 2017-07-10 | disposition home or self-care (01) ==
LOC: CARD 08:01
PROVIDERS: ATTEND Physician Assistant
DX: R07.89 Other chest pain (principal); I10 Essential (primary) hypertension; F41.8 Other specified anxiety disorders; Z82.49 Family history of ischemic heart disease and other diseases of the circulatory system
CPT/HCPCS: 93225; 93226

== ENCOUNTER 2017-05-21 16:05 | Emergency (ER) | payer BC, MEDICAID ==
[~2017-05-21] VITALS: Ht 157.5 cm; Wt 86.2 kg
--- OUTSIDE RECORDS SUMMARY | 2017-05-21 16:12 | XMS REPORT | Continuity of Care Document ---
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 04/20/2016 SHARONA DYKES HIDE AND SKIN CLASSER Ot R42 DIZZINESS AND GIDDINESS 04/22/2016 SHARONA DYKES H[employer] AND SKIN CLASSER Ot R13.10 DYSPHAGIA, UNSPECIFIED 04/22/2016 SHARONA DYKES H[employer] AND SKIN CLASSER Ot R49.0 DYSPHONIA 04/28/2016 SHARONA DYKES H[employer] AND SKIN CLASSER Ot R00.2 PALPITATIONS 04/28/2016 SHARONA DYKES H[employer] AND SKIN CLASSER Ot R42 DIZZINESS AND GIDDINESS 04/28/2016 SHARONA DYKES H[employer] AND SKIN CLASSER Ot R53.83 OTHER FATIGUE 05/05/2016 SHARONA DYKES H[employer] AND SKIN CLASSER Ot R13.10 DYSPHAGIA, UNSPECIFIED 05/05/2016 SHARONA DYKES H[employer] AND SKIN CLASSER Ot R49.0 DYSPHONIA 05/26/2016 SHARONA DYKES HIDE AND SKIN CLASSER Ot R00.2 PALPITATIONS 05/26/2016 SHARONA DYKES H[employer] AND SKIN CLASSER Ot R42 DIZZINESS AND GIDDINESS 06/02/2016 YANG MACHUCA, JULIETTE Cisneros Ot R40.1 STUPOR 06/02/2016 SAM AL DO Ot R40.1 STUPOR 06/09/2016 SAM AL DO Ot R40.1 STUPOR 06/17/2016 JULIETTE SORIA MD Ot R40.1 STUPOR 07/18/2016 SHARONA DYKES H[employer] AND SKIN CLASSER Ot R00.2 PALPITATIONS 07/18/2016 SHARONA DYKES H[employer] AND SKIN CLASSER Ot R42 DIZZINESS AND GIDDINESS 07/19/2016 SHARONA DYKES HIDE AND SKIN CLASSER Ot R00.2 PALPITATIONS 07/19/2016 SHARONA DYKES H[employer] AND SKIN CLASSER Ot R42 DIZZINESS AND GIDDINESS 07/30/2016 YANG MACHUCA, JULIETTE Cisneros Ot R40.1 STUPOR 08/10/2016 BETTY MACHUCA, DIAZ Rea Ot G47.10 HYPERSOMNIA, UNSPECIFIED 08/10/2016 BETTY MACHUCA, DIAZ Rea Ot G47.61 PERIODIC LIMB MOVEMENT DISORDER 08/10/2016 BETTY MACHUCA, DIAZ Rea Ot R06.83 SNORING 08/10/2016 BETTY MACHUCA, DIAZ Rea Ot R42 DIZZINESS AND GIDDINESS 08/10/2016 BETTY MACHUCA, DIAZ Rea Ot G47.10 HYPERSOMNIA, UNSPECIFIED 08/10/2016 BETTY MACHUCA, DIAZ Rea Ot G47.61 PERIODIC LIMB MOVEMENT DISORDER 08/10/2016 BETTY MACHUCA, DIAZ Rea Ot R06.83 SNORING 08/10/2016 BETTY MACHUCA, DIAZ Rea Ot R42 DIZZINESS AND GIDDINESS 09/17/2016 LATESHA MACHUCA, EDUARD Harmon Ot M25.572 PAIN IN LEFT ANKLE AND JOINTS OF LEFT FO 09/17/2016 EDUARD CHARLTON MD Ot M79.89 OTHER SPECIFIED SOFT TISSUE DISORDERS 10/05/2016 YANG MACHUCA, JULIETTE Cisneros Ot R40.1 STUPOR 12/03/2016 IKER MACHUCA, DORENE Chang Ot 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 12/03/2016 DORENE DONG MD, Ot Z3A.01 LESS THAN 8 WEEKS GESTATION OF 12/26/2016 DORENE DONG MD Ot 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 12/26/2016 DORENE DONG MD Ot Z3A.11 11 WEEKS GESTATION OF 12/29/2016 DORENE DONG MD Ot 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 12/29/2016 DORENE DONG MD Ot Z3A.11 11 WEEKS GESTATION OF 03/05/2017 MADELYN MCCLELLAND DO Ot F32.9 MAJOR DEPRESSIVE DISORDER, SINGLE EPISOD 03/05/2017 MADELYN MCCLELLAND DO Ot F41.9 ANXIETY DISORDER, UNSPECIFIED 03/05/2017 MADELYN MCCLELLAND DO Ot J20.9 ACUTE BRONCHITIS, UNSPECIFIED 03/05/2017 MADELYN MCCLELLAND DO Ot J32.9 CHRONIC SINUSITIS, UNSPECIFIED 03/05/2017 MADELYN MCCLELLAND DO Ot K21.9 GASTRO-ESOPHAGEAL REFLUX DISEASE WITHOUT 03/05/2017 MADELYN MCCLELLAND DO Ot R25.1 TREMOR, UNSPECIFIED 03/05/2017 MADELYN MCCLELLAND DO Ot Z82.49 FAMILY HX OF ISCHEM HEART DIS AND OTH DI 03/05/2017 MADELYN MCCLELLAND DO K Ot Z87.891 PERSONAL HISTORY OF NICOTINE DEPENDENCE 03/05/2017 KRYSTIN , MADELYN K Ot Z90.49 ACQUIRED ABSENCE OF OTHER SPECIFIED PART 03/08/2017 KRYSTIN , MADELYN K Ot F32.9 MAJOR DEPRESSIVE DISORDER, SINGLE EPISOD 03/08/2017 KRYSTIN , MADELYN K Ot F41.9 ANXIETY DISORDER, UNSPECIFIED 03/08/2017 KRYSTIN , MADELYN K Ot J20.9 ACUTE BRONCHITIS, UNSPECIFIED 03/08/2017 KRYSTIN , MADELYN K Ot J32.9 CHRONIC SINUSITIS, UNSPECIFIED 03/08/2017 KRYSTIN , MADELYN K Ot K21.9 GASTRO-ESOPHAGEAL REFLUX DISEASE WITHOUT 03/08/2017 KRYSTIN CYNDY THOMPSONA K Ot R25.1 TREMOR, UNSPECIFIED 03/08/2017 KRYSTIN , MADELYN K Ot Z82.49 FAMILY HX OF ISCHEM HEART DIS AND OTH DI 03/08/2017 KRYSTIN THOMPSON MADELYN K Ot Z87.891 PERSONAL HISTORY OF NICOTINE DEPENDENCE 03/08/2017 KRYSTIN MADELYN K Ot Z90.49 ACQUIRED ABSENCE OF OTHER SPECIFIED PART 04/04/2017 YOANA NARANJO Ot 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 04/04/2017 YOANA NARANJO Ot K21.9 GASTRO-ESOPHAGEAL REFLUX DISEASE WITHOUT 04/04/2017 YOANA NARANJO Ot N83.291 OTHER OVARIAN CYST, RIGHT SIDE 04/04/2017 YOANA NARANJO Ot R07.89 OTHER CHEST PAIN 04/04/2017 YOANA NARANJO Ot R07.9 CHEST PAIN, UNSPECIFIED 04/04/2017 YOANA NARANJO Ot Z82.49 FAMILY HX OF ISCHEM HEART DIS AND OTH DI 04/04/2017 YOANA NARANJO Ot Z87.59 PERSONAL HISTORY OF COMP OF PREG, CHLDBR 04/04/2017 YOANA NARANJO Ot Z87.891 PERSONAL HISTORY OF NICOTINE DEPENDENCE 04/04/2017 YOANA NARANJO Ot Z90.49 ACQUIRED ABSENCE OF OTHER SPECIFIED PART 04/10/2017 YOANA NARANJO Ot 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 04/10/2017 YOANA NARANJO Ot K21.9 GASTRO-ESOPHAGEAL REFLUX DISEASE WITHOUT 04/10/2017 YOANA NARANJO Ot N83.291 OTHER OVARIAN CYST, RIGHT SIDE 04/10/2017 YOANA NARANJO Ot R07.89 OTHER CHEST PAIN 04/10/2017 YOANA NARANJO Ot R07.9 CHEST PAIN, UNSPECIFIED 04/10/2017 YOANA NARANJO Ot Z82.49 FAMILY HX OF ISCHEM HEART DIS AND OTH DI 04/10/2017 YOANA NARANJO Ot Z87.59 PERSONAL HISTORY OF COMP OF PREG, CHLDBR 04/10/2017 YOANA NARANJO Ot Z87.891 PERSONAL HISTORY OF NICOTINE DEPENDENCE 04/10/2017 YOANA NARANJO Ot Z90.49 ACQUIRED ABSENCE OF OTHER SPECIFIED PART 04/12/2017 ALCIDES MORRELL Ot F41.8 OTHER SPECIFIED ANXIETY DISORDERS 04/12/2017 ALCIDES MORRELL Ot I10 ESSENTIAL (PRIMARY) HYPERTENSION 04/12/2017 ALCIDES MORRELL Ot R07.89 OTHER CHEST PAIN 04/12/2017 ALCIDES MORRELL Ot Z82.49 FAMILY HX OF ISCHEM HEART DIS AND OTH DI 04/29/2017 ALCIDES MORRELL Ot F41.8 OTHER SPECIFIED ANXIETY DISORDERS 04/29/2017 ALCIDES MORRELL Ot I10 ESSENTIAL (PRIMARY) HYPERTENSION 04/29/2017 ALCIDES MORRELL Ot R07.89 OTHER CHEST PAIN 04/29/2017 ALCIDES MORRELL Ot Z82.49 FAMILY HX OF ISCHEM HEART DIS AND OTH DI 05/10/2017 ALCIDES MORRELL Ot F41.8 OTHER SPECIFIED ANXIETY DISORDERS 05/10/2017 ALCIDES MORRELL Ot I10 ESSENTIAL (PRIMARY) HYPERTENSION 05/10/2017 ALCIDES MORRELL Ot R07.89 OTHER CHEST PAIN 05/10/2017 ALCIDES MORRELL Ot Z82.49 FAMILY HX OF ISCHEM HEART DIS AND OTH DI Procedures Code [place] [address] PSYCH DIAGNOSTIC EVALUATION 03/22/2013 85416 PSYTX PT&/FAMILY 45 MINUTES 03/29/2013 20230 PSYTX PT&/FAMILY 45 MINUTES 01/15/2014 29823 PSYTX PT&/FAMILY 45 MINUTES 02/28/2014 68549 PSYTX PT&/FAMILY 45 MINUTES 03/12/2014 70635 PSYTX PT&/FAMILY 45 MINUTES 04/04/2014 56500 PSYTX PT&/FAMILY 45 MINUTES 04/23/2014 [id number] EXTRACTION OF POC, LOW CERVICAL, OPEN AP 05/21/2015 Results Test Result Range Complete blood count (CBC) with automated white blood cell (WBC) differential - 12/14/15 13:42 Blood leukocytes automated count (number/volume) 6.9 10*3/uL 4.3-11.0 Blood erythrocytes automated count (number/volume) 4.91 10*6/uL 4.35-5.85 Venous blood hemoglobin measurement (mass/volume) 15.1 g/dL 11.5-16.0 Blood hematocrit (volume fraction) 44 % 35-52 Automated erythrocyte mean corpuscular volume 89 [foz_us] 80-99 Automated erythrocyte mean corpuscular hemoglobin (mass per erythrocyte) 31 pg 25-34 Automated erythrocyte mean corpuscular hemoglobin concentration measurement ( mass/volume) 35 g/dL 32-36 Automated erythrocyte distribution width ratio 13.5 % 10.0-14.5 Automated blood platelet count (count/volume) 224 10*3/uL 130-400 Automated blood platelet mean volume measurement 11.8 [foz_us] 7.4-10.4 Automated blood neutrophils/100 leukocytes 73 % 42-75 Automated blood lymphocytes/100 leukocytes 18 % 12-44 Blood monocytes/100 leukocytes 9 % 0-12 Automated blood eosinophils/100 leukocytes 0 % 0-10 Automated blood basophils/100 leukocytes 0 % 0-10 Blood neutrophils automated count (number/volume) 5.1 10*3 1.8-7.8 Blood lymphocytes automated count (number/volume) 1.3 10*3 1.0-4.0 Blood monocytes automated count (number/volume) 0.6 10*3 0.0-1.0 Automated eosinophil count 0.0 10*3/uL 0.0-0.3 Automated blood basophil count (count/volume) 0.0 10*3/uL 0.0-0.1 Comprehensive metabolic panel - 12/14/15 13:42 Serum or plasma sodium measurement (moles/volume) 136 mmol/L 135-145 Serum or plasma potassium measurement (moles/volume) 2.9 mmol/L 3.6-5.0 Serum or plasma chloride measurement (moles/volume) 103 mmol/L 98-107 Carbon dioxide 21 mmol/L 21-32 Serum or plasma anion gap determination (moles/volume) 12 mmol/L 5-14 Serum or plasma urea nitrogen measurement (mass/volume) 6 mg/dL 7-18 Serum or plasma creatinine measurement (mass/volume) 0.76 mg/dL 0.60-1.30 Serum or plasma urea nitrogen/creatinine mass ratio 8 NRG Serum or plasma creatinine measurement with calculation of estimated glomerular filtration rate > NRG Serum or plasma glucose measurement (mass/volume) 98 mg/dL 70-105 Serum or plasma calcium measurement (mass/volume) 8.7 mg/dL 8.5-10.1 Serum or plasma total bilirubin measurement (mass/volume) 0.7 mg/dL 0.1-1.0 Serum or plasma alkaline phosphatase measurement (enzymatic activity/volume) 83 U/L 40-136 Serum or plasma aspartate aminotransferase measurement (enzymatic activity/ volume) 68 U/L 5-34 Serum or plasma alanine aminotransferase measurement (enzymatic activity/volume ) 34 U/L 0-55 Serum or plasma protein measurement (mass/volume) 6.6 g/dL 6.4-8.2 Serum or plasma albumin measurement (mass/volume) 4.0 g/dL 3.2-4.5 Lipase - 12/14/15 13:42 Lipase 10 U/L 8-78 Complete urinalysis with reflex to culture - 12/14/15 13:49 Urine color determination YELLOW NRG Urine clarity determination CLEAR NRG Urine pH measurement by test strip 6.5 5-9 Specific gravity of urine by test strip 1.010 1.016- 1.022 Urine protein assay by test strip, semi-quantitative NEGATIVE NEGATIVE Urine glucose detection by automated test strip NEGATIVE NEGATIVE Erythrocytes detection in urine sediment by light microscopy NEGATIVE NEGATIVE Urine ketones detection by automated test strip NEGATIVE NEGATIVE Urine nitrite detection by test strip NEGATIVE NEGATIVE Urine total bilirubin detection by test strip NEGATIVE NEGATIVE Urine urobilinogen measurement by automated test strip (mass/volume) NORMAL NORMAL Urine leukocyte esterase detection by dipstick NEGATIVE NEGATIVE Automated urine sediment erythrocyte count by microscopy (number/high power field) NONE NRG Automated urine sediment leukocyte count by microscopy (number/high power field ) RARE NRG Bacteria detection in urine sediment by light microscopy TRACE NRG Squamous epithelial cells detection in urine sediment by light microscopy 2-5 NRG Crystals detection in urine sediment by light microscopy NONE NRG Casts detection in urine sediment by light microscopy NONE NRG Mucus detection in urine sediment by light microscopy NEGATIVE NRG Complete urinalysis with reflex to culture NO NRG Urine drug screening test - 12/14/15 13:49 Urine acetaminophen detection by screening method NEGATIVE NEGATIVE Urine phencyclidine detection by screening method NEGATIVE NEGATIVE Urine benzodiazepines detection by screening method NEGATIVE NEGATIVE Urine cocaine detection NEGATIVE NEGATIVE Urine amphetamines detection by screening method NEGATIVE NEGATIVE Urine methamphetamine detection by screening method NEGATIVE NEGATIVE Urine cannabinoids detection by screening method NEGATIVE NEGATIVE Urine opiates detection by screening method NEGATIVE NEGATIVE Urine barbiturates detection NEGATIVE NEGATIVE Screening urine tricyclic antidepressants detection NEGATIVE NEGATIVE Urine methadone detection by screening method NEGATIVE NEGATIVE Complete blood count (CBC) with automated white blood cell (WBC) differential - 01/06/16 23:37 Blood leukocytes automated count (number/volume) 7.6 10*3/uL 4.3-11.0 Blood erythrocytes automated count (number/volume) 4.46 10*6/uL 4.35-5.85 Venous blood hemoglobin measurement (mass/volume) 13.9 g/dL 11.5-16.0 Blood hematocrit (volume fraction) 41 % 35-52 Automated erythrocyte mean corpuscular volume 91 [foz_us] 80-99 Automated erythrocyte mean corpuscular hemoglobin (mass per erythrocyte) 31 pg 25-34 Automated erythrocyte mean corpuscular hemoglobin concentration measurement ( mass/volume) 34 g/dL 32-36 Automated erythrocyte distribution width ratio 13.1 % 10.0-14.5 Automated blood platelet count (count/volume) 264 10*3/uL 130-400 Automated blood platelet mean volume measurement 11.8 [foz_us] 7.4-10.4 Automated blood neutrophils/100 leukocytes 43 % 42-75 Automated blood lymphocytes/100 leukocytes 44 % 12-44 Blood monocytes/100 leukocytes 11 % 0-12 Automated blood eosinophils/100 leukocytes 1 % 0-10 Automated blood basophils/100 leukocytes 1 % 0-10 Blood neutrophils automated count (number/volume) 3.3 10*3 1.8-7.8 Blood lymphocytes automated count (number/volume) 3.3 10*3 1.0-4.0 Blood monocytes automated count (number/volume) 0.9 10*3 0.0-1.0 Automated eosinophil count 0.1 10*3/uL 0.0-0.3 Automated blood basophil count (count/volume) 0.0 10*3/uL 0.0-0.1 PT panel in platelet poor plasma by coagulation assay - 01/06/16 23:37 Prothrombin time (PT) in platelet poor plasma by coagulation assay 12.6 s 12.2-14.7 INR in platelet poor plasma or blood by coagulation assay 1.0 0.8-1.4 Activated partial thromboplastin time (aPTT) in platelet poor plasma bycoagulation assay - 01/06/16 23:37 Activated partial thromboplastin time (aPTT) in platelet poor plasma bycoagulation assay 32 s 24-35 Serum or plasma choriogonadotropin ( test) detection - 01/06/16 23:37 Serum or plasma choriogonadotropin ( test) detection NEGATIVE NEGATIVE Comprehensive metabolic panel - 01/06/16 23:37 Serum or plasma sodium measurement (moles/volume) 137 mmol/L 135-145 Serum or plasma potassium measurement (moles/volume) 3.5 mmol/L 3.6-5.0 Serum or plasma chloride measurement (moles/volume) 105 mmol/L 98-107 Carbon dioxide 20 mmol/L 21-32 Serum or plasma anion gap determination (moles/volume) 12 mmol/L 5-14 Serum or plasma urea nitrogen measurement (mass/volume) 12 mg/dL 7-18 Serum or plasma creatinine measurement (mass/volume) 0.84 mg/dL 0.60-1.30 Serum or plasma urea nitrogen/creatinine mass ratio 14 NRG Serum or plasma creatinine measurement with calculation of estimated glomerular filtration rate > NRG Serum or plasma glucose measurement (mass/volume) 119 mg/dL 70-105 Serum or plasma calcium measurement (mass/volume) 8.9 mg/dL 8.5-10.1 Serum or plasma total bilirubin measurement (mass/volume) 0.5 mg/dL 0.1-1.0 Serum or plasma alkaline phosphatase measurement (enzymatic activity/volume) 74 U/L 40-136 Serum or plasma aspartate aminotransferase measurement (enzymatic activity/ volume) 18 U/L 5-34 Serum or plasma alanine aminotransferase measurement (enzymatic activity/volume ) 19 U/L 0-55 Serum or plasma protein measurement (mass/volume) 6.6 g/dL 6.4-8.2 Serum or plasma albumin measurement (mass/volume) 4.1 g/dL 3.2-4.5 Magnesium - 01/06/16 23:37 Magnesium 2.1 mg/dL 1.8-2.4 Serum or plasma lithium measurement (moles/volume) - 01/06/16 23:37 BNP level 16.7 pg/mL <100.0 Serum or plasma troponin i.cardiac measurement (mass/volume) - 01/06/16 23:37 Serum or plasma troponin i.cardiac measurement (mass/volume) < ng/ mL <0.30 Serum or plasma thyrotropin measurement by detection limit <=0.05 miu/l (units/ volume) - 01/06/16 23:37 Serum or plasma thyrotropin measurement by detection limit <=0.05 miu/l (units/ volume) 3.65 u[iU]/mL 0.35-4.94 Urine drug screening test - 01/07/16 00:01 Urine acetaminophen detection by screening method NEGATIVE NEGATIVE Urine phencyclidine detection by screening method NEGATIVE NEGATIVE Urine benzodiazepines detection by screening method NEGATIVE NEGATIVE Urine cocaine detection NEGATIVE NEGATIVE Urine amphetamines detection by screening method NEGATIVE NEGATIVE Urine methamphetamine detection by screening method NEGATIVE NEGATIVE Urine cannabinoids detection by screening method NEGATIVE NEGATIVE Urine opiates detection by screening method NEGATIVE NEGATIVE Urine barbiturates detection NEGATIVE NEGATIVE Screening urine tricyclic antidepressants detection NEGATIVE NEGATIVE Urine methadone detection by screening method NEGATIVE NEGATIVE Complete blood count (CBC) with automated white blood cell (WBC) differential - 03/29/16 21:20 Blood leukocytes automated count (number/volume) 10.1 10*3/uL 4.3-11.0 Blood erythrocytes automated count (number/volume) 4.48 10*6/uL 4.35-5.85 Venous blood hemoglobin measurement (mass/volume) 14.0 g/dL 11.5-16.0 Blood hematocrit (volume fraction) 40 % 35-52 Automated erythrocyte mean corpuscular volume 89 [foz_us] 80-99 Automated erythrocyte mean corpuscular hemoglobin (mass per erythrocyte) 31 pg 25-34 Automated erythrocyte mean corpuscular hemoglobin concentration measurement ( mass/volume) 35 g/dL 32-36 Automated erythrocyte distribution width ratio 12.6 % 10.0-14.5 Automated blood platelet count (count/volume) 281 10*3/uL 130-400 Automated blood platelet mean volume measurement 11.2 [foz_us] 7.4-10.4 Automated blood neutrophils/100 leukocytes 71 % 42-75 Automated blood lymphocytes/100 leukocytes 20 % 12-44 Blood monocytes/100 leukocytes 8 % 0-12 Automated blood eosinophils/100 leukocytes 1 % 0-10 Automated blood basophils/100 leukocytes 0 % 0-10 Blood neutrophils automated count (number/volume) 7.1 10*3 1.8-7.8 Blood lymphocytes automated count (number/volume) 2.0 10*3 1.0-4.0 Blood monocytes automated count (number/volume) 0.8 10*3 0.0-1.0 Automated eosinophil count 0.1 10*3/uL 0.0-0.3 Automated blood basophil count (count/volume) 0.0 10*3/uL 0.0-0.1 Complete urinalysis with reflex to culture - 03/29/16 21:20 Urine color determination YELLOW NRG Urine clarity determination CLEAR NRG Urine pH measurement by test strip 6.5 5-9 Specific gravity of urine by test strip 1.005 1.016- 1.022 Urine protein assay by test strip, semi-quantitative NEGATIVE NEGATIVE Urine glucose detection by automated test strip NEGATIVE NEGATIVE Erythrocytes detection in urine sediment by light microscopy 5+ NEGATIVE Urine ketones detection by automated test strip NEGATIVE NEGATIVE Urine nitrite detection by test strip NEGATIVE NEGATIVE Urine total bilirubin detection by test strip NEGATIVE NEGATIVE Urine urobilinogen measurement by automated test strip (mass/volume) NORMAL NORMAL Urine leukocyte esterase detection by dipstick NEGATIVE NEGATIVE Automated urine sediment erythrocyte count by microscopy (number/high power field) [HPF] NRG Automated urine sediment leukocyte count by microscopy (number/high power field ) RARE NRG Bacteria detection in urine sediment by light microscopy NEGATIVE NRG Squamous epithelial cells detection in urine sediment by light microscopy 0-2 NRG Crystals detection in urine sediment by light microscopy NONE NRG Casts detection in urine sediment by light microscopy NONE NRG Mucus detection in urine sediment by light microscopy NEGATIVE NRG Complete urinalysis with reflex to culture NO NRG Comprehensive metabolic panel - 03/29/16 21:20 Serum or plasma sodium measurement (moles/volume) 139 mmol/L 135-145 Serum or plasma potassium measurement (moles/volume) 3.7 mmol/L 3.6-5.0 Serum or plasma chloride measurement (moles/volume) 105 mmol/L 98-107 Carbon dioxide 24 mmol/L 21-32 Serum or plasma anion gap determination (moles/volume) 10 mmol/L 5-14 Serum or plasma urea nitrogen measurement (mass/volume) 15 mg/dL 7-18 Serum or plasma creatinine measurement (mass/volume) 0.82 mg/dL 0.60-1.30 Serum or plasma urea nitrogen/creatinine mass ratio 18 NRG Serum or plasma creatinine measurement with calculation of estimated glomerular filtration rate > NRG Serum or plasma glucose measurement (mass/volume) 99 mg/dL 70-105 Serum or plasma calcium measurement (mass/volume) 9.2 mg/dL 8.5-10.1 Serum or plasma total bilirubin measurement (mass/volume) 0.4 mg/dL 0.1-1.0 Serum or plasma alkaline phosphatase measurement (enzymatic activity/volume) 89 U/L 40-136 Serum or plasma aspartate aminotransferase measurement (enzymatic activity/ volume) 20 U/L 5-34 Serum or plasma alanine aminotransferase measurement (enzymatic activity/volume ) 12 U/L 0-55 Serum or plasma protein measurement (mass/volume) 7.0 g/dL 6.4-8.2 Serum or plasma albumin measurement (mass/volume) 4.2 g/dL 3.2-4.5 THYROID STIMULATING HORMONE - 03/29/16 21:20 THYROID STIMULATING HORMONE 2.63 u[iU]/mL 0.35-4.94 Thyroglobulin measurement with antithyroglobulin antibody assay - 04/09/16 12: 26 Thyroglobulin [mass/volume] in serum or plasma 144.00 % 1.60-59.90 Serum or plasma thyroperoxidase antibody assay (units/volume) - 04/09/16 12:26 Serum or plasma thyroperoxidase antibody assay (units/volume) 47.99 % 0.00-100.00 Thyroid stimulating immunoglobulin (TSI) measurement - 04/09/16 12:26 Thyroglobulin [mass/volume] in serum or plasma 0.08 % 0.00-0.50 Complete blood count (CBC) with automated white blood cell (WBC) differential - 04/16/16 21:51 Blood leukocytes automated count (number/volume) 10.8 10*3/uL 4.3-11.0 Blood erythrocytes automated count (number/volume) 4.69 10*6/uL 4.35-5.85 Venous blood hemoglobin measurement (mass/volume) 14.7 g/dL 11.5-16.0 Blood hematocrit (volume fraction) 42 % 35-52 Automated erythrocyte mean corpuscular volume 89 [foz_us] 80-99 Automated erythrocyte mean corpuscular hemoglobin (mass per erythrocyte) 31 pg 25-34 Automated erythrocyte mean corpuscular hemoglobin concentration measurement ( mass/volume) 35 g/dL 32-36 Automated erythrocyte distribution width ratio 12.6 % 10.0-14.5 Automated blood platelet count (count/volume) 257 10*3/uL 130-400 Automated blood platelet mean volume measurement 11.3 [foz_us] 7.4-10.4 Automated blood neutrophils/100 leukocytes 62 % 42-75 Automated blood lymphocytes/100 leukocytes 28 % 12-44 Blood monocytes/100 leukocytes 9 % 0-12 Automated blood eosinophils/100 leukocytes 1 % 0-10 Automated blood basophils/100 leukocytes 0 % 0-10 Blood neutrophils automated count (number/volume) 6.7 10*3 1.8-7.8 Blood lymphocytes automated count (number/volume) 3.0 10*3 1.0-4.0 Blood monocytes automated count (number/volume) 0.9 10*3 0.0-1.0 Automated eosinophil count 0.1 10*3/uL 0.0-0.3 Automated blood basophil count (count/volume) 0.0 10*3/uL 0.0-0.1 Fibrin D-dimer FEU measurement in platelet poor plasma (mass/volume) - 21:51 Fibrin D-dimer FEU measurement in platelet poor plasma (mass/volume) < ug/mL 0.00-0.49 Serum or plasma choriogonadotropin ( test) detection - 04/16/16 21:51 Serum or plasma choriogonadotropin ( test) detection NEGATIVE NEGATIVE Comprehensive metabolic panel - 04/16/16 21:51 Serum or plasma sodium measurement (moles/volume) 138 mmol/L 135-145 Serum or plasma potassium measurement (moles/volume) 3.5 mmol/L 3.6-5.0 Serum or plasma chloride measurement (moles/volume) 107 mmol/L 98-107 Carbon dioxide 21 mmol/L 21-32 Serum or plasma anion gap determination (moles/volume) 10 mmol/L 5-14 Serum or plasma urea nitrogen measurement (mass/volume) 14 mg/dL 7-18 Serum or plasma creatinine measurement (mass/volume) 0.80 mg/dL 0.60-1.30 Serum or plasma urea nitrogen/creatinine mass ratio 18 NRG Serum or plasma creatinine measurement with calculation of estimated glomerular filtration rate > NRG Serum or plasma glucose measurement (mass/volume) 104 mg/dL 70-105 Serum or plasma calcium measurement (mass/volume) 9.3 mg/dL 8.5-10.1 Serum or plasma total bilirubin measurement (mass/volume) 0.5 mg/dL 0.1-1.0 Serum or plasma alkaline phosphatase measurement (enzymatic activity/volume) 86 U/L 40-136 Serum or plasma aspartate aminotransferase measurement (enzymatic activity/ volume) 18 U/L 5-34 Serum or plasma alanine aminotransferase measurement (enzymatic activity/volume ) 18 U/L 0-55 Serum or plasma protein measurement (mass/volume) 7.3 g/dL 6.4-8.2 Serum or plasma albumin measurement (mass/volume) 4.4 g/dL 3.2-4.5 Magnesium - 04/16/16 21:51 Magnesium 2.2 mg/dL 1.8-2.4 Serum or plasma troponin i.cardiac measurement (mass/volume) - 04/16/16 21:51 Serum or plasma troponin i.cardiac measurement (mass/volume) < ng/ mL <0.30 THYROID STIMULATING HORMONE - 04/16/16 21:51 THYROID STIMULATING HORMONE 2.33 u[iU]/mL 0.35-4.94 24 hour urine creatinine panel - 05/30/16 11:45 Urine creatinine measurement (mass/volume) 72 mg/dL 30- 125 24 hour urine specimen volume measurement 1900 mL NRG Creatinine ur 24hr 1368 mg 800-1700 24 hour urine catecholamines measurement (mass/volume) - 05/30/16 11:45 24 hour urine specimen volume measurement 1900 mL NRG Urine collection time duration 24 h NRG Urine epinephrine measurement (mass/volume) 4 % 1-7 Urine norepinephrine measurement (mass/volume) 34 % 16-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
[2017-05-21 16:26] LABS: BASOPHILS % (AUTO) 0 % (0-10); EOSINOPHILS # (AUTO) 0.1 10^3/uL (0.0-0.3); EOSINOPHILS % (AUTO) 1 % (0-10); HEMATOCRIT 42 % (35-52); LYMPHOCYTES # (AUTO) 2.2 X 10^3 (1.0-4.0); LYMPHOCYTES % (AUTO) 19 % (12-44); MEAN CORPUSCULAR HEMOGLOBIN 30 PG (25-34); MEAN CORPUSCULAR HGB CONC 36 G/DL (32-36); MEAN CORPUSCULAR VOLUME 85 FL (80-99); MEAN PLATELET VOLUME 11.1 FL (7.4-10.4); MONOCYTES # (AUTO) 1.1 X 10^3 (0.0-1.0); MONOCYTES % (AUTO) 10 % (0-12); NEUTROPHILS # (AUTO) 8.2 X 10^3 (1.8-7.8); NEUTROPHILS % (AUTO) 70 % (42-75); PLATELET COUNT 301 10^3/uL (130-400); RED BLOOD COUNT 4.95 10^6/uL (4.35-5.85); RED CELL DISTRIBUTION WIDTH 13.3 % (10.0-14.5); WHITE BLOOD COUNT 11.6 10^3/uL (4.3-11.0)
[2017-05-21 16:36] LABS: BILIRUBIN,URINE NEGATIVE (NEGATIVE); CLARITY,URINE SLIGHTLY CLOUDY; COLOR,URINE YELLOW; GLUCOSE, URINE (UA) NEGATIVE (NEGATIVE); KETONES,URINE NEGATIVE (NEGATIVE); LEUKOCYTE ESTERASE ,URINE 3+ (NEGATIVE); NITRITE,URINE NEGATIVE (NEGATIVE); PH,URINE 5 (5-9); PROTEIN,URINE 1+ (NEGATIVE); UROBILINOGEN,URINE NORMAL (NORMAL)
[2017-05-21 16:45] LABS: ALANINE AMINOTRANSFERASE 36 U/L (0-55); ALBUMIN 4.1 GM/DL (3.2-4.5); ALKALINE PHOSPHATASE 82 U/L (40-136); BILIRUBIN,TOTAL 0.4 MG/DL (0.1-1.0); BUN/CREATININE RATIO 18; CARBON DIOXIDE 20 MMOL/L (21-32); CHLORIDE 108 MMOL/L (98-107); CREATININE SERUM 0.82 MG/DL (0.60-1.30); GFR ESTIMATED > 60; GLUCOSE 79 MG/DL (70-105); POTASSIUM 3.5 MMOL/L (3.6-5.0); SODIUM 141 MMOL/L (135-145); TOTAL PROTEIN 7.6 GM/DL (6.4-8.2)
[2017-05-21 16:50] LABS: AMPHETAMINE SCREEN, URINE NEGATIVE (NEGATIVE); BARBITURATE SCREEN URINE NEGATIVE (NEGATIVE); BENZODIAZEPINES SCREEN URINE NEGATIVE (NEGATIVE); CANNABINOID SCREEN, URINE NEGATIVE (NEGATIVE); COCAINE SCREEN URINE NEGATIVE (NEGATIVE); METHADONE STAT NEGATIVE (NEGATIVE); METHAMPHETAMINE SCREEN URINE S NEGATIVE (NEGATIVE); OPIATE SCREEN URINE NEGATIVE (NEGATIVE); OXYCODONE STAT NEGATIVE (NEGATIVE); PROPOXYPHENE STAT NEGATIVE (NEGATIVE); TRICYCLIC ANTIDEPRESSANTS SCRE NEGATIVE (NEGATIVE)
[2017-05-21 16:53] LABS: BACTERIA,URINE TRACE /HPF; SQUAMOUS EPITHELIAL CELL,UR >50 /HPF
--- NOTE | 2017-05-21 17:07 | ED Cardiac General ---
History of Present Illness General Chief Complaint: Cardiac/General Problems Stated Complaint: CP AND HIGH BP Nursing Triage Note: pt reports tachycardia, palpitations, cp, and soa since tuesday. Source: patient Exam Limitations: no limitations History of Present Illness Time seen by provider: 17:06 Initial Comments To ER with c/o tachycardia, anxiety, palpitations, chest pain, dyspnea x3 days. Started lexapro 3 weeks ago for anxiety. ALso started ativan at bedtime at that time to help sleep. 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 She's seen Dr Robison and has had echocardiogram, holter monitor. He started 25mg metoprolol about a month ago which she states has improved her symptoms greatly until about 3-4 days ago. Timing/Duration: 3-4 days Severity: moderate NTG SL STONE GRADER: No ASA po STONE GRADER: No Associated Systoms: Chest Pain Allergies and Home Medications Allergies Coded Allergies: Penicillins (Unverified Allergy, Mild, 09/13/08) Home Medications Benzonatate 100 Mg Capsule, 1-2 TAB PO TID, #30 Prescribed by: MADELYN MCCLELLAND on 03/05/175 Doxylamine/Pyridoxine HCl 1 Each Tablet.dr, 1 EACH PO QID PRN for NAUSEA/ VOMITING-1ST LINE, (Reported) Fluticasone Propionate 9.9 Ml [place].susp, 2 SPRAYS NS BID, #1 Prescribed by: MADELYN MCCLELLAND on 03/05/17414 Guaifenesin/Dextromethorphan 1 Each Tbmp.12hr, 1 EACH PO BID for 10 Days, #20 Prescribed by: MADELYN MCCLELLAND on 03/05/17414 Hydroxyzine Pamoate 25 Mg Capsule, 25 MG PO Q6H PRN for ANXIETY, #30 Ref 0 Prescribed by: YOANA SILVA on 04/04/172116 Ondansetron 8 Mg Tab.rapdis, 8 MG PO Q6H PRN for NAUSEA/VOMITING-1ST LINE, #20 Prescribed by: DORENE FUENTES on 12/03/16 0721 Prednisone 10 Mg Tab, 30 MG PO DAILY, #9 Prescribed by: MADELYN MCCLELLAND on 03/05/175 Prednisone 20 Mg Tab, 20 MG PO DAILY, #5 Ref 0 Prescribed by: YOANA SILVA on 04/04/172135 Vit/Iron Fumarate/FA 1 Each Tablet, 1 EACH PO, (Reported) Review of Systems Constitutional: see HPI EENTM: No Symptoms Reported Respiratory: No Symptoms Reported Cardiovascular: See HPI, Chest Pain Gastrointestinal: See HPI Genitourinary: No Symptoms Reported Musculoskeletal: no symptoms reported Skin: no symptoms reported Psychiatric/Neurological: No Symptoms Reported Endocrine: No Symptoms Reported Past [place]-Bngpvn-Ykwbgn Hx Patient Social History Alcohol Use: Denies Use Recreational Drug Use: No Smoking Status: Current Someday Smoker Type Used: Cigarettes Former Smoker, Quit: May 16, 2013 2nd Hand Smoke Exposure: No Recent Foreign Travel: No Contact w/Someone Who Travel: No Recent Infectious Disease Expo: No Recent Hopitalizations: No Physical Abuse: No Sexual Abuse: No Mistreated: No Immunizations Up To Date Tetanus Booster (TDap): More than 5yrs PED Vaccines UTD: No Date of Influenza Vaccine: Feb 13, 2015 Seasonal Allergies Seasonal Allergies: No Surgeries History of Surgeries: Yes (egd, colonoscopy) Surgeries: Appendectomy, Section, Gallbladder Respiratory History of Respiratory Disorde: No Currently Using CPAP: No Currently Using BIPAP: No Cardiovascular History of Cardiac Disorders: Yes (SEES MIGUEL ANGEL PRECAUTIONGAURAV DUE TO MOTHER HAVING CHF AT YOUNG AGE) Cardiac Disorders: Heart Murmur, Hypertension Neurological History of Neurological Disord: No Reproductive System Hx Reproductive Disorders: Yes Sexually Transmitted Disease: No HIV/AIDS: No Female Reproductive Disorders: Denies Genitourinary History of Genitourinary Disor: No Gastrointestinal History of Gastrointestinal Di: Yes Gastrointestinal Disorders: Gastroesophageal Reflux Musculoskeletal History of Musculoskeletal Dis: No Endocrine History of Endocrine Disorders: Yes (undiagnosed thyriod issue, 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 to see a pallet repairer) HEENT History of HEENT Disorders: No Loss of Vision: Denies Hearing Impairment: Denies Cancer History of Cancer: No Psychosocial History of Psychiatric Problem: Yes Behavioral Health Disorders: Anxiety, Depression Suicide Risk Score: 0 Integumentary History of Skin or Integumenta: No Blood Transfusions History of Blood Disorders: No Adverse Reaction to a Blood Tr: No Family Medical History Significant Family History: No Pertinent Family Hx, Diabetes Family Medial History: Cardiovascular disease 19 MOTHER, G8 BROTHER Hypercholesterolemia 19 MOTHER, Hypertension 19 MOTHER, Thyroid disease G8 BROTHER Physical Exam Vital Signs Vital Sign - Last 12Hours 05/21/17 16:22 Temp 98.1 Pulse 121 Resp 22 B/P (MAP) 132/97 (109) Pulse Ox 100 Capillary Refill : Less Than 3 Seconds General Appearance: No Apparent Distress, WD/WN HEENT: PERRL/EOMI, TMs Normal Neck: Full Range of Motion, Normal Inspection Respiratory: Normal Breath Sounds, No Accessory Muscle Use, No Respiratory Distress Cardiovascular: Normal Peripheral Pulses, Tachycardia (100-108sinus without ectopy) Gastrointestinal: Normal Bowel Sounds, Non Tender, Soft Extremity: Normal Capillary Refill, Normal Inspection Neurologic/Psychiatric: Alert, Oriented x3, No Motor/Sensory Deficits Skin: Normal Color, Warm/Dry Progress/Results/Core Measures Results/Orders Lab Results Laboratory Tests Test 05/21/17 16:18 05/21/17 16:28 Range/Units White Blood Count 11.6 H 4.3-11.0 10^3/uL Red Blood Count 4.95 4.35-5.85 10^6/uL Hemoglobin 15.0 11.5-16.0 G/DL Hematocrit 42 35-52 % Mean Corpuscular Volume 85 80-99 FL Mean Corpuscular Hemoglobin 30 25-34 PG Mean Corpuscular Hemoglobin Concent 36 32-36 G/DL Red Cell Distribution Width 13.3 10.0-14.5 % Platelet Count 301 130-400 10^3/uL Mean Platelet Volume 11.1 H 7.4-10.4 FL Neutrophils (%) (Auto) 70 42-75 % Lymphocytes (%) (Auto) 19 12-44 % Monocytes (%) (Auto) 10 0-12 % Eosinophils (%) (Auto) 1 0-10 % Basophils (%) (Auto) 0 0-10 % Neutrophils # (Auto) 8.2 H 1.8-7.8 X 10^3 Lymphocytes # (Auto) 2.2 1.0-4.0 X 10^3 Monocytes # (Auto) 1.1 H 0.0-1.0 X 10^3 Eosinophils # (Auto) 0.1 0.0-0.3 10^3/uL Basophils # (Auto) 0.0 0.0-0.1 10^3/uL D-Dimer 0.34 0.00-0.49 UG/ML Sodium Level 141 135-145 MMOL/L Potassium Level 3.5 L 3.6-5.0 MMOL/L Chloride Level 108 H 98-107 MMOL/L Carbon Dioxide Level 20 L 21-32 MMOL/L Anion Gap 13 5-14 MMOL/L Blood Urea Nitrogen 15 7-18 MG/DL Creatinine 0.82 0.60-1.30 MG/DL Estimat Glomerular Filtration Rate > 60 BUN/Creatinine Ratio 18 Glucose Level 79 70-105 MG/DL Calcium Level 9.0 8.5-10.1 MG/DL Total Bilirubin 0.4 0.1-1.0 MG/DL Aspartate Amino Transf (AST/SGOT) 29 5-34 U/L Alanine Aminotransferase (ALT/SGPT) 36 0-55 U/L Alkaline Phosphatase 82 40-136 U/L Troponin I < 0.30 <0.30 NG/ML Total Protein 7.6 6.4-8.2 GM/DL Albumin 4.1 3.2-4.5 GM/DL Thyroid Stimulating Hormone (TSH) 1.43 0.35-4.94 UIU/ML Urine Color YELLOW Urine Clarity SLIGHTLY CLOUDY Urine pH 5 5-9 Urine Specific [place] 1.020 1.016-1.022 Urine Protein 1+ H NEGATIVE Urine Glucose (UA) NEGATIVE NEGATIVE Urine Ketones NEGATIVE NEGATIVE Urine Nitrite NEGATIVE NEGATIVE Urine Bilirubin NEGATIVE NEGATIVE Urine Urobilinogen NORMAL NORMAL MG/DL Urine Leukocyte Esterase 3+ H NEGATIVE Urine RBC (Auto) NEGATIVE NEGATIVE Urine RBC NONE /HPF Urine WBC 10-25 H /HPF Urine Squamous Epithelial Cells >50 H /HPF Urine Crystals NONE /LPF Urine Bacteria TRACE /HPF Urine Casts NONE /LPF Urine Mucus SMALL H /LPF Urine Culture Indicated YES Urine Opiates Screen NEGATIVE NEGATIVE Urine Oxycodone Screen NEGATIVE NEGATIVE Urine Methadone Screen NEGATIVE NEGATIVE Urine Propoxyphene Screen NEGATIVE NEGATIVE Urine Barbiturates Screen NEGATIVE NEGATIVE Ur Tricyclic Antidepressants Screen NEGATIVE NEGATIVE Urine Phencyclidine Screen NEGATIVE NEGATIVE Urine Amphetamines Screen NEGATIVE NEGATIVE Urine Methamphetamines Screen NEGATIVE NEGATIVE Urine Benzodiazepines Screen NEGATIVE NEGATIVE Urine Cocaine Screen NEGATIVE NEGATIVE Urine Cannabinoids Screen NEGATIVE NEGATIVE My Orders Orders - TIAGO PEREZ ICE CREAM CHEF Cbc With Automated Diff (05/21/17 16:16) Thyroid Stimulating Hormone (05/21/17 16:16) Ua Culture If Indicated (05/21/17 16:16) Urine Bedside (05/21/17 16:16) Drug Screen Stat (Urine) (05/21/17 16:16) Ekg Tracing (05/21/17 16:16) Comprehensive Metabolic Panel (05/21/17 16:16) Urine Culture (05/21/17 16:28) Sulfamethoxazole/Trimet Ds Tab (Bactrim (05/21/17 17:15) Potassium Chloride (Tablet) (Klor Con Ta (05/21/17 17:15) Troponin I (05/21/17 17:01) Ns Iv 1000 Ml (Sodium Chloride 0.9%) (05/21/17 17:15) Fibrin Degradation Products (05/21/17 17:07) Vital Signs/I&O Vital Sign - Last 12Hours 05/21/17 16:22 Temp 98.1 Pulse 121 Resp 22 B/P (MAP) 132/97 (109) Pulse Ox 100 Blood Pressure Mean: 109 Point of Care Testing Urine -Bedside: Negative Departure Impression Impression: Primary Impression: Anxiety Additional Impressions: Palpitations Urinary tract infection Disposition: 01 HOME, SELF-CARE Condition: Stable Departure-Patient Inst. Decision time for Depature: 17:10 Referrals: JANIE MANCIA MD (PCP/Family) Primary Care Physician Patient Instructions: Chest Pain That Is Not Caused by the Heart (DC) Add. Discharge Instructions: 1. Take 1/2 tablet of the ativan in the morning to see if this lower dose helps with anxiety without making you excessively sleepy 2. Take antibiotics as directed 3. Follow up with Dr robison this week as scheduled. 4. Continue other medications as you currently are. All discharge instructions reviewed with patient and/or family. Voiced understanding. Scripts Sulfamethoxazole/Trimethoprim (Bactrim Ds Tablet) 1 Each Tablet 1 EACH PO BID, #10 TAB Prov: TIAGO PEREZ APRN 05/21/17 Copy Copies To 1: JULIETTE SORIA MD; DESMOND ROBISON MD, PETER J APRN May 21, 2017 17:07
[2017-05-21] MEDS ORDERED: NS IV 1000 ML 1,000 ML IV SCH (17:15)
[2017-05-21] MEDS ORDERED: TRIM/SULFAMETH 160/800 (SEPTRA DS) TAB PO ONE (17:15)
[2017-05-21] MEDS ORDERED: KCL 10 MEQ TAB (MICRO K) PO ONE (17:15)
[2017-05-21] MEDS ORDERED: SULF1TAB35 PO (17:50)
[2017-05-21 18:59] VITALS: BP 129/87
== END 2017-05-21 18:58 | disposition home or self-care (01) ==
LOC: EDUNIT# 16:05 → ER 16:06
DX: F41.9 Anxiety disorder, unspecified (principal); F32.9 Major depressive disorder, single episode, unspecified; K21.9 Gastro-esophageal reflux disease without esophagitis; I10 Essential (primary) hypertension; N39.0 Urinary tract infection, site not specified; F17.210 Nicotine dependence, cigarettes, uncomplicated; Z87.59 Personal history of other complications of pregnancy, childbirth and the puerperium; Z90.49 Acquired absence of other specified parts of digestive tract
CPT/HCPCS: 36415; 80053; 80306; 81000; 84443; 84484; 84703; 85025; 85379; 87088; 93005

== ENCOUNTER 2017-05-31 18:02 | Emergency (ER) | payer BC, MEDICAID ==
[~2017-05-31] VITALS: Ht 160 cm; Wt 111.1 kg
[~2017-05-31 18:02] MED LIST changes: +SULF1TAB35 PO
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
--- NOTE | 2017-05-31 18:54 | ED Chest Pain ---
General Chief Complaint: Dizziness/Syncope Stated Complaint: HIGH BP Nursing Triage Note: PT WITH HX OF IRREGULAR HEART BEAT FELT CHEST PRESSURE EARLIER THEN HAD A SYNCOPAL EPISODE AT THE [employer]. PT STATES SHE FELL BUT WAS AWAKE WHEN SHE HIT THE GROUND AND DENIES HITTING HER HEAD OR ANY OTHER PAIN FROM FALLING. Nursing Sepsis Screen: No Definite Risk Source: patient Exam Limitations: no limitations History of Present Illness Time seen by provider: 18:35 Initial Comments This 27-year-old woman presents to the emergency room with complaints of chest pain, tachycardia palpitations, and a near syncopal episode. 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 It was her first day on the job. The event happened on her way home at approximately 17:15. She developed a pounding headache and palpitations. That she then had a near syncopal episode and lowered herself to the ground. She had Dr. Treasure kinney and he referred her to the emergency room. She sees Dr. Robison on a regular basis for cardiac issues. She reports she was recently diagnosed with inappropriate sinus tachycardia and placed on metoprolol. She took her metoprolol at about 17:00 yesterday and she took today's dose right after the episode. She had a 48 hour Holter monitor performed which did not show any significant arrhythmias. Palpitations and lightheadedness have resolved but she still has some mild chest heaviness/pain. Vital signs are within normal limits. Allergies and Home Medications Allergies Coded Allergies: Penicillins (Unverified Allergy, Mild, 09/13/08) Home Medications Benzonatate 100 Mg Capsule, 1-2 TAB PO TID, #30 Prescribed by: MADELYN MCCLELLAND on 03/05/17414 Doxylamine/Pyridoxine HCl 1 Each Tablet.dr, 1 EACH PO QID PRN for NAUSEA/ VOMITING-1ST LINE, (Reported) Fluticasone Propionate 9.9 Ml [place].susp, 2 SPRAYS NS BID, #1 Prescribed by: MADELYN MCCLELLAND on 03/05/17414 Guaifenesin/Dextromethorphan 1 Each Tbmp.12hr, 1 EACH PO BID for 10 Days, #20 Prescribed by: MADELYN MCCLELLAND on 03/05/17414 Hydroxyzine Pamoate 25 Mg Capsule, 25 MG PO Q6H PRN for ANXIETY, #30 Ref 0 Prescribed by: YOANA SILVA on 04/04/17 2117 Ondansetron 8 Mg Tab.rapdis, 8 MG PO Q6H PRN for NAUSEA/VOMITING-1ST LINE, #20 Prescribed by: DORENE FUENTES on 12/03/16 0721 Prednisone 10 Mg Tab, 30 MG PO DAILY, #9 Prescribed by: MADELYN MCCLELLAND on 03/05/17 0415 Prednisone 20 Mg Tab, 20 MG PO DAILY, #5 Ref 0 Prescribed by: YOANA SILVA on 04/04/17 2136 Vit/Iron Fumarate/FA 1 Each Tablet, 1 EACH PO, (Reported) Sulfamethoxazole/Trimethoprim 1 Each Tablet, 1 EACH PO BID, #10 Prescribed by: TIAGO PEREZ on 05/21/17 1750 Review of Systems Constitutional: no symptoms reported EENTM: No Symptoms Reported Respiratory: No Symptoms Reported Cardiovascular: See HPI Gastrointestinal: No Symptoms Reported Genitourinary: No Symptoms Reported Musculoskeletal: no symptoms reported Skin: no symptoms reported Psychiatric/Neurological: See HPI Endocrine: No Symptoms Reported Hematologic/Lymphatic: No Symptoms Reported Past Nfefeul-Sibdop-Eqlsrb Hx Patient Social History Alcohol Use: Rarely Uses Alcohol Beverage of Choice: Beer Recreational Drug Use: No Smoking Status: Former Smoker Type Used: Cigarettes Former Smoker, Quit: May 30, 2017 2nd Hand Smoke Exposure: No Recent Foreign Travel: No Contact w/Someone Who Travel: No Recent Infectious Disease Expo: No Recent Hopitalizations: No Immunizations Up To Date Tetanus Booster (TDap): More than 5yrs PED Vaccines UTD: No Date of Influenza Vaccine: Feb 13, 2015 Seasonal Allergies Seasonal Allergies: No Surgeries History of Surgeries: Yes (egd, colonoscopy) Surgeries: Appendectomy, Section, Gallbladder Respiratory History of Respiratory Disorde: No Currently Using CPAP: No Currently Using BIPAP: No Cardiovascular History of Cardiac Disorders: Yes (SEES MIGUEL ANGEL HONG DUE TO MOTHER HAVING CHF AT YOUNG AGE) Cardiac Disorders: Heart Murmur, Hypertension, Irregular Heartbeat ( Inappropriate sinus tachycardia) Neurological History of Neurological Disord: No Reproductive System : No Last Menstrual Period: May 27, 2017 Hx Reproductive Disorders: Yes Sexually Transmitted Disease: No HIV/AIDS: No Female Reproductive Disorders: Denies Genitourinary History of Genitourinary Disor: No Gastrointestinal History of Gastrointestinal Di: Yes Gastrointestinal Disorders: Gastroesophageal Reflux Musculoskeletal History of Musculoskeletal Dis: No Endocrine History of Endocrine Disorders: Yes (undiagnosed thyriod issue, due to see a uncrater) HEENT History of HEENT Disorders: No Loss of Vision: Denies Hearing Impairment: Denies Cancer History of Cancer: No Psychosocial History of Psychiatric Problem: Yes Behavioral Health Disorders: Anxiety, Depression Integumentary History of Skin or Integumenta: No Blood Transfusions History of Blood Disorders: No Adverse Reaction to a Blood Tr: No Family Medical History Significant Family History: No Pertinent Family Hx, Diabetes Family Medial History: Cardiovascular disease 19 MOTHER, G8 BROTHER Hypercholesterolemia 19 MOTHER, Hypertension 19 MOTHER, Thyroid disease G8 BROTHER Physical Exam Vital Signs Vital Sign - Last 12Hours 05/31/17 18:22 Temp 97.9 Pulse 83 Resp 20 B/P (MAP) 140/92 (108) Pulse Ox 100 O2 Delivery Room Air Capillary Refill : Less Than 3 Seconds General Appearance: No Apparent Distress, WD/WN HEENT: PERRL/EOMI, Normal ENT Inspection, Pharynx Normal Neck: Normal Inspection Respiratory: Chest Non Tender, Lungs Clear, Normal Breath Sounds, No Accessory Muscle Use, No Respiratory Distress Cardiovascular: Regular Rate, Rhythm, No Edema, No Murmur Gastrointestinal: Non Tender, Soft Extremity: Normal Inspection, No Pedal Edema Neurologic/Psychiatric: Alert, Oriented x3, No Motor/Sensory Deficits, Normal Mood/Affect, community marketing manager II-XII Norm as Tested Skin: Normal Color, Warm/Dry Progress/Results/Core Measures Results/Orders Lab Results Laboratory Tests Test 05/31/17 19:25 Range/Units White Blood Count 8.4 4.3-11.0 10^3/uL Red Blood Count 4.41 4.35-5.85 10^6/uL Hemoglobin 13.8 11.5-16.0 G/DL Hematocrit 40 35-52 % Mean Corpuscular Volume 90 80-99 FL Mean Corpuscular Hemoglobin 31 25-34 PG Mean Corpuscular Hemoglobin Concent 35 32-36 G/DL Red Cell Distribution Width 13.5 10.0-14.5 % Platelet Count 286 130-400 10^3/uL Mean Platelet Volume 11.0 H 7.4-10.4 FL Neutrophils (%) (Auto) 66 42-75 % Lymphocytes (%) (Auto) 25 12-44 % Monocytes (%) (Auto) 8 0-12 % Eosinophils (%) (Auto) 1 0-10 % Basophils (%) (Auto) 0 0-10 % Neutrophils # (Auto) 5.5 1.8-7.8 X 10^3 Lymphocytes # (Auto) 2.1 1.0-4.0 X 10^3 Monocytes # (Auto) 0.7 0.0-1.0 X 10^3 Eosinophils # (Auto) 0.1 0.0-0.3 10^3/uL Basophils # (Auto) 0.0 0.0-0.1 10^3/uL Prothrombin Time 12.9 12.2-14.7 SEC INR Comment 1.0 0.8-1.4 Activated Partial Thromboplast Time 30 24-35 SEC Sodium Level 139 135-145 MMOL/L Potassium Level 3.6 3.6-5.0 MMOL/L Chloride Level 105 98-107 MMOL/L Carbon Dioxide Level 25 21-32 MMOL/L Anion Gap 9 5-14 MMOL/L Blood Urea Nitrogen 13 7-18 MG/DL Creatinine 0.76 0.60-1.30 MG/DL Estimat Glomerular Filtration Rate > 60 BUN/Creatinine Ratio 17 Glucose Level 83 70-105 MG/DL Calcium Level 9.1 8.5-10.1 MG/DL Magnesium Level 1.9 1.8-2.4 MG/DL Total Bilirubin 0.4 0.1-1.0 MG/DL Aspartate Amino Transf (AST/SGOT) 23 5-34 U/L Alanine Aminotransferase (ALT/SGPT) 35 0-55 U/L Alkaline Phosphatase 72 40-136 U/L Myoglobin 31.3 10.0-92.0 NG/ML Troponin I < 0.30 <0.30 NG/ML Total Protein 6.9 6.4-8.2 GM/DL Albumin 4.0 3.2-4.5 GM/DL Thyroid Stimulating Hormone (TSH) 1.70 0.35-4.94 UIU/ML My Orders Orders - TIM WAKEFIELD MD Cbc With Automated Diff (05/31/17 18:45) Magnesium (05/31/17 18:45) Chest 1 View, Ap/Pa Only (05/31/17 18:45) Ekg Tracing (05/31/17 18:45) Cardiac Profile 1 (05/31/17 18:45) Comprehensive Metabolic Panel (05/31/17 18:45) Myoglobin Serum (05/31/17 18:45) Protime With Inr (05/31/17 18:45) Partial Thromboplastin Time (05/31/17 18:45) O2 (05/31/17 18:45) Monitor-Rhythm Ecg Trace Only (05/31/17 18:45) Saline Lock/Iv-Start (05/31/17 18:45) Thyroid Stimulating Hormone (05/31/17 19:25) Vital Signs/I&O Vital Sign - Last 12Hours 05/31/17 05/31/17 18:22 21:48 Temp 97.9 97.9 Pulse 83 83 Resp 20 20 B/P (MAP) 140/92 (108) Pulse Ox 100 100 O2 Delivery Room Air Blood Pressure Mean: 108 Progress Note : Progress Note Workup was unremarkable. Patient had no further episodes of near syncope and no arrhythmias were noted on the monitor. Case was discussed with Dr. Amanda who agrees she can return home with close outpatient follow-up. I suggested she try taking one half tablet of her metoprolol in the morning to help control palpitations throughout the day. ECG Initial ECG Impression Date: May 31, 2017 Initial ECG Impression Time: 18:22 Initial ECG Rate: 77 Initial ECG Rhythm: Normal Sinus Initial ECG Intervals: Normal Initial ECG Impression: Normal Comment Normal sinus rhythm with no ST elevation or depression. No abnormal intervals or axis deviation. Diagnostic Imaging Diagonstic Imaging: Xray Plain Films/CT/US/NM/MRI: chest Comments Chest x-ray viewed by me and report reviewed. See report below: NAME: MIREYA GOODE [facility] REC#: [id number] PT STATUS: REG ER : 1990 PHYSICIAN: TIM WAKEFIELD MD ADMIT DATE: 05/31/17/ER Draft Date of Exam:05/31/17 CHEST 1 VIEW, AP/PA ONLY INDICATION: Chest pain Comparison made to the prior study from 04/04/2017. FINDINGS: The lungs are clear without focal infiltrate or effusion. There is no pneumothorax. Heart size and mediastinal contours are appropriate. Pulmonary vascularity is normal. There is no acute osseous abnormality. IMPRESSION: No radiographic evidence of an acute cardiopulmonary process Dictated on workstation # [id number] Dict: 05/31/17 1858 Trans: 05/31/17 1900 NADIA [id number] Interpreted by: SIXTO ALSTON MD Departure Impression Impression: Primary Impression: Atypical chest pain Additional Impressions: Palpitations Near syncope Disposition: HOME, SELF-CARE Condition: Stable Departure-Patient Inst. Decision time for Depature: 21:35 Referrals: JANIE MANCIA MD (PCP/Family) Primary Care Physician Patient Instructions: Chest Pain, Palpitations, Syncope (Fainting) (DC) Add. Discharge Instructions: Follow-up with Dr. Robison as soon as possible. Please call his office first thing in the morning. Return to care if symptoms worsen. You may try taking one half tablet of your Toprol-XL in the morning to help control palpitations. Stay well-hydrated by drinking plenty of clear liquids. Avoid any stimulants that could worsen palpitations such as excessive caffeine, decongestants and medications, energy drinks, etc. All discharge instructions reviewed with patient and/or family. Voiced understanding. Copy Copies To 1: DESMOND ROBISON MD, JOSHUA T MD May 31, 2017 18:54
--- NOTE | 2017-05-31 19:00 | Diagnostic Imaging Report ---
INDICATION: Chest pain Comparison made to the prior study from 04/04/2017. FINDINGS: The lungs are clear without focal infiltrate or effusion. There is no pneumothorax. Heart size and mediastinal contours are appropriate. Pulmonary vascularity is normal. There is no acute osseous abnormality. IMPRESSION: No radiographic evidence of an acute cardiopulmonary process Dictated by: Dictated on workstation # [id number]
[2017-05-31 19:34] LABS: BASOPHILS % (AUTO) 0 % (0-10); EOSINOPHILS # (AUTO) 0.1 10^3/uL (0.0-0.3); EOSINOPHILS % (AUTO) 1 % (0-10); HEMATOCRIT 40 % (35-52); HEMOGLOBIN 13.8 G/DL (11.5-16.0); LYMPHOCYTES # (AUTO) 2.1 X 10^3 (1.0-4.0); LYMPHOCYTES % (AUTO) 25 % (12-44); MEAN CORPUSCULAR HEMOGLOBIN 31 PG (25-34); MEAN CORPUSCULAR HGB CONC 35 G/DL (32-36); MEAN CORPUSCULAR VOLUME 90 FL (80-99); MONOCYTES # (AUTO) 0.7 X 10^3 (0.0-1.0); MONOCYTES % (AUTO) 8 % (0-12); NEUTROPHILS # (AUTO) 5.5 X 10^3 (1.8-7.8); NEUTROPHILS % (AUTO) 66 % (42-75); PLATELET COUNT 286 10^3/uL (130-400); RED BLOOD COUNT 4.41 10^6/uL (4.35-5.85); RED CELL DISTRIBUTION WIDTH 13.5 % (10.0-14.5); WHITE BLOOD COUNT 8.4 10^3/uL (4.3-11.0)
[2017-05-31 19:58] LABS: ALANINE AMINOTRANSFERASE 35 U/L (0-55); ALKALINE PHOSPHATASE 72 U/L (40-136); BILIRUBIN,TOTAL 0.4 MG/DL (0.1-1.0); BUN/CREATININE RATIO 17; CALCIUM 9.1 MG/DL (8.5-10.1); CARBON DIOXIDE 25 MMOL/L (21-32); CHLORIDE 105 MMOL/L (98-107); CREATININE SERUM 0.76 MG/DL (0.60-1.30); GFR ESTIMATED > 60; GLUCOSE 83 MG/DL (70-105); MAGNESIUM 1.9 MG/DL (1.8-2.4); POTASSIUM 3.6 MMOL/L (3.6-5.0); SODIUM 139 MMOL/L (135-145); TOTAL PROTEIN 6.9 GM/DL (6.4-8.2)
[2017-05-31 20:01] LABS: PROTHROMBIN TIME PATIENT 12.9 SEC (12.2-14.7)
[2017-05-31 20:18] LABS: MYOGLOBIN SERUM 31.3 NG/ML (10.0-92.0)
[2017-05-31 21:48] VITALS: BP 130/89
== END 2017-05-31 21:48 | disposition home or self-care (01) ==
LOC: EDUNIT# 18:02 → ER 18:04
DX: R07.89 Other chest pain (principal); R00.2 Palpitations; R55 Syncope and collapse; I11.0 Hypertensive heart disease with heart failure; I50.9 Heart failure, unspecified; K21.9 Gastro-esophageal reflux disease without esophagitis; F32.9 Major depressive disorder, single episode, unspecified; F41.9 Anxiety disorder, unspecified; Z82.49 Family history of ischemic heart disease and other diseases of the circulatory system; Z87.891 Personal history of nicotine dependence; Z87.59 Personal history of other complications of pregnancy, childbirth and the puerperium; Z90.49 Acquired absence of other specified parts of digestive tract
CPT/HCPCS: 36415; 71045; 80053; 83735; 83874; 84443; 84484; 85025; 85610; 85730; 93005; 93041

== ENCOUNTER 2017-06-09 21:08 | Outpatient (CLI) | payer BC, MEDICAID | END 2017-06-10 06:17 | disposition home or self-care (01) | LOC: SLEEP 21:08 | PROVIDERS: ATTEND Physician Assistant | DX: G47.33 Obstructive sleep apnea (adult) (pediatric) (principal); R06.83 Snoring | CPT/HCPCS: 95810 ==

== ENCOUNTER 2017-06-13 07:43 | Day surgery (SDC) | payer BC, MEDICAID ==
[~2017-06-13] VITALS: Ht 160 cm; Wt 107.5 kg
[2017-06-13] MEDS ORDERED: LIDOCAINE 1% INJ 50 ML (XYLOCAINE) VIAL ONE (07:48)
[2017-06-13 07:54] VITALS: BP 132/79
--- NOTE | 2017-06-13 13:38 | OPERATIVE REPORT ---
DATE OF SERVICE: 06/13/2017 REVEAL DEVICE IMPLANTATION REPORT BRIEF HISTORY: The patient is a 27-year-old lady with history of palpitations and multiple PVCs and ventricular bigeminy, an episode of tachycardia, had failed multiple attempts to adjust her medication, lately has been having worsening symptoms, was unable to tolerate higher dose of beta kaylee. Using increasing amount of Ativan. Decided to proceed with a Reveal device implantation to monitor her palpitations and adjust her therapy. PROCEDURE NOTE: After explaining the procedure to the patient, all pros and cons were explained. All questions were answered. The patient was placed in the holding area. No sedation was needed, using aseptic technique. Local anesthesia applied. Then, small skin incision was made and Reveal LINQ device was inserted subcutaneously with serial #[id number]. Dermabond applied and applied. No complication noted. CONCLUSION: Successful Reveal LINQ device implantation with no complication. FINAL DIAGNOSES: 1. Palpitation. 2. Frequent PVCs. 3. Tachycardia. 4. Anxiety. Job ID: [id number] DocumentID: [id number] Dictated Date: 06/13/2017 08:45:48 Fermentologist Date: 06/13/2017 13:37:46 Dictated By: DESMOND MICHELLE MD
== END 2017-06-13 09:02 | disposition home or self-care (01) ==
LOC: CATH 07:43
PROVIDERS: ATTEND Internal Medicine Cardiovascular Disease
DX: R00.2 Palpitations (principal); I49.3 Ventricular premature depolarization; R00.0 Tachycardia, unspecified; F41.9 Anxiety disorder, unspecified; I10 Essential (primary) hypertension; Z82.49 Family history of ischemic heart disease and other diseases of the circulatory system; Z79.899 Other long term (current) drug therapy
CPT/HCPCS: 33282

== ENCOUNTER 2017-08-13 14:31 | Emergency (ER) | payer BC, MEDICAID ==
[~2017-08-13] VITALS: Ht 160 cm; Wt 108.9 kg
[2017-08-13] MEDS ORDERED: METO-351 PO (14:50)
[2017-08-13] MEDS ORDERED: ALPR0.25 PO (14:50)
[2017-08-13] MEDS ORDERED: ESCI20TA PO (14:50)
--- NOTE | 2017-08-13 16:09 | Diagnostic Imaging Report ---
INDICATION: Leg pain, mass. COMPARISON: None. EXAMINATION: Multiple views of the left femur were obtained. FINDINGS: No fracture or dislocation. Articular surfaces are normal. There is no osseous lesion. No obvious soft tissue abnormality is seen. IMPRESSION: Negative left femur. Dictated by: Dictated on workstation # [id number]
--- NOTE | 2017-08-13 16:20 | ED Lower Extremity ---
General Chief Complaint: Lower Extremity Stated Complaint: LUMP ON L LEG ABOVE KNEE, SORENESS, SWELLING Nursing Triage Note: PT CO OF L THIGH HAVING A KNOT IN IT. PT STATES HAS HAD FOR A WHILE. DENIES ANY INJURY. Nursing Sepsis Screen: No Definite Risk History of Present Illness Date Seen by Provider: Aug 14, 2017 Time Seen by Provider: 15:15 Initial Comments 27-year-old female reports for pain, swelling and "knot" in her left distal thigh, reports the pain occasionally starts in her left buttocks and radiates to the left thigh. She denies an injury to her left leg or her lower back. She denies any paresthesias or radicular symptoms distal to her left knee. She points to the level of her quadriceps tendon. 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 She has no weight loss, no night sweats, and no fevers. Pain/Injury Location: left thigh Method of Injury: unknown Modifying Factors: Improves With Rest Allergies and Home Medications Allergies Coded Allergies: Penicillins (Unverified Allergy, Mild, 09/13/08) Home Medications Escitalopram Oxalate 20 Mg Tablet, 40 MG PO DAILY, (Reported) Metoprolol Succinate 25 Mg Tab.er.24h, Unknown Dose PO DAILY, (Reported) Patient Home Medication List Home Medication List Reviewed: Yes Constitutional: no symptoms reported, see HPI Musculoskeletal: see HPI, muscle pain (left quadriceps, distally) All Other Systems Reviewed Negative Unless Noted: Yes Past Whpughe-Wenggo-Gaccal Hx Patient Social History Alcohol Use: Denies Use Number of Drinks Today: AA Alcohol Beverage of Choice: Beer Recreational Drug Use: No Smoking Status: Former Smoker Type Used: Cigarettes Former Smoker, Quit: May 30, 2017 2nd Hand Smoke Exposure: No Recent Foreign Travel: No Contact w/Someone Who Travel: No Recent Infectious Disease Expo: No Recent Hopitalizations: No Physical Abuse: No Sexual Abuse: No Immunizations Up To Date Tetanus Booster (TDap): More than 5yrs PED Vaccines UTD: No Date of Influenza Vaccine: Feb 13, 2015 Seasonal Allergies Seasonal Allergies: No Surgeries History of Surgeries: Yes (egd, colonoscopy) Surgeries: Appendectomy, Section, Gallbladder Respiratory History of Respiratory Disorde: No Currently Using CPAP: No Currently Using BIPAP: No Cardiovascular History of Cardiac Disorders: Yes (RONIT HONG DUE TO MOTHER HAVING CHF AT YOUNG AGE) Cardiac Disorders: Heart Murmur, Hypertension, Irregular Heartbeat Neurological History of Neurological Disord: No Reproductive System : No Hx Reproductive Disorders: Yes Sexually Transmitted Disease: No HIV/AIDS: No Female Reproductive Disorders: Denies Genitourinary History of Genitourinary Disor: No Gastrointestinal History of Gastrointestinal Di: Yes Gastrointestinal Disorders: Gastroesophageal Reflux Musculoskeletal History of Musculoskeletal Dis: No Endocrine History of Endocrine Disorders: Yes (undiagnosed thyriod issue, due to see a tile ditcher) HEENT History of HEENT Disorders: No Loss of Vision: Denies Hearing Impairment: Denies Cancer History of Cancer: No Psychosocial History of Psychiatric Problem: Yes Behavioral Health Disorders: Anxiety, Depression Suicide Risk Score: 0 Integumentary History of Skin or Integumenta: No Blood Transfusions History of Blood Disorders: No Adverse Reaction to a Blood Tr: No Reviewed Nursing Assessment Reviewed/Agree w Nursing PMH: Yes Family Medical History Significant Family History: No Pertinent Family Hx, Diabetes Family Medial History: Cardiovascular disease 19 MOTHER, G8 BROTHER Hypercholesterolemia 19 MOTHER, Hypertension 19 MOTHER, Thyroid disease G8 BROTHER Physical Exam Vital Signs Vital Signs - First Documented 08/13/17 14:40 Temp 97.6 Pulse 64 Resp 18 B/P (MAP) 177/70 (105) Pulse Ox 97 Capillary Refill : Less Than 3 Seconds General Appearance: WD/WN, no apparent distress Cardiovascular: normal peripheral pulses, regular rate, rhythm, no edema, no murmur Respiratory: chest non-tender, lungs clear, normal breath sounds Gastrointestinal: normal bowel sounds, non tender, soft Hips: left hip non-tender, left hip normal inspection, left hip normal range of motion Legs: left leg normal inspection (no knot palpated or visible), left leg normal range of motion, left leg no evidence of injury Knees: left knee non-tender, left knee normal inspection, left knee normal range of motion, left knee no evidence of injury Neurologic/Tendon: normal sensation, normal motor functions, normal tendon functions Neurologic/Psychiatric: no motor/sensory deficits, alert, normal mood/affect, oriented x 3 Skin: normal color, warm/dry Comments Ambulates with steady heel-toe gait, full power toe and heel walking. Power V/V L4-S1. Progress/Results/Core Measures Results/Orders My Orders Orders - ALINE TOPETE Femur, Left, 2 Views (08/13/17 15:28) Vital Signs/I&O Vital Sign - Last 12Hours 08/13/17 08/13/17 14:40 16:33 Temp 97.6 97.6 Pulse 64 64 Resp 18 18 B/P (MAP) 177/70 (105) 177/70 (105) Pulse Ox 97 97 Blood Pressure Mean: 105 Diagnostic Imaging Diagonstic Imaging: Xray Plain Films/CT/US/NM/MRI: leg (left femur) Comments NAME: MIREYA GOODE Diamond [facility] REC#: [id number] PHYSICIAN: ALINE TOPETE CC: EDUARD HOLGUIN; ALINE TOPETE Page 1 of 1 RADIOLOGY REPORT V[facility] [place] [place] CC: EDUARD HOLGUIN; ALINE TOPETE Page 1 of 1 RADIOLOGY REPORT NAME: RUPAMIREYA Diamond [facility] REC#: [id number] PT STATUS: REG ER : 1990 PHYSICIAN: ALINE TOPETE ADMIT DATE: 08/13/17/ER Signed Date of Exam: 08/13/17 FEMUR, LEFT, 2 VIEWS INDICATION: Leg pain, mass. COMPARISON: None. EXAMINATION: Multiple views of the left femur were obtained. FINDINGS: No fracture or dislocation. Articular surfaces are normal. There is no osseous lesion. No obvious soft tissue abnormality is seen. IMPRESSION: Negative left femur. Dictated by: Dictated on workstation # [id number] Dict: 08/13/17 1545 Trans: 08/13/17 1610 Interpreted by: EDUARD HOLGIUN Electronically signed by: EDUARD HOLGUIN 08/13/17 1610 Departure Impression Impression: Primary Impression: Left thigh pain Disposition: 01 HOME, SELF-CARE Condition: Stable Departure-Patient Inst. Decision time for Depature: 16:20 Referrals: JULIETTE SORIA MD (PCP/Family) Primary Care Physician Patient Instructions: Low Back Pain (DC), Sciatica Add. Discharge Instructions: Ice alternating with warm moist compressions to left thigh 20 minutes every 2 hours for pain. Alternate ibuprofen 600 mg and Tylenol 650 mg every 4 hours for pain. Activity as tolerated. All up with your primary care provider if symptoms are not improving or worsen. Return to emergency department for new problems or concerns. All discharge instructions reviewed with patient and/or family. Voiced understanding. Copy Copies To 1: JULIETTE SORIA MD, AMY ARNP Aug 13, 2017 16:20
[2017-08-13 16:33] VITALS: BP 177/70
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
== END 2017-08-13 16:33 | disposition home or self-care (01) ==
LOC: EDUNIT# 14:31 → ER 14:32
DX: M79.652 Pain in left thigh (principal); F41.9 Anxiety disorder, unspecified; F32.9 Major depressive disorder, single episode, unspecified; K21.9 Gastro-esophageal reflux disease without esophagitis; I10 Essential (primary) hypertension; Z87.891 Personal history of nicotine dependence; Z90.49 Acquired absence of other specified parts of digestive tract; Z87.59 Personal history of other complications of pregnancy, childbirth and the puerperium
CPT/HCPCS: 73552

== ENCOUNTER 2017-08-23 17:25 | Emergency (ER) | payer MEDICAID ==
[~2017-08-23] VITALS: Ht 160 cm; Wt 108.9 kg
[~2017-08-23 17:25] MED LIST changes: +ALPR0.25 PO; +ESCI20TA PO; +METO-351 PO
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
[2017-08-23 18:10] VITALS: BP 135/74
== END 2017-08-23 18:10 | disposition home or self-care (01) ==
LOC: EDUNIT# 17:25 → ER 17:26
DX: S60.221A Contusion of right hand, initial encounter (principal); I10 Essential (primary) hypertension; K21.9 Gastro-esophageal reflux disease without esophagitis; F41.9 Anxiety disorder, unspecified; F32.9 Major depressive disorder, single episode, unspecified; Z88.0 Allergy status to penicillin; Z82.49 Family history of ischemic heart disease and other diseases of the circulatory system; Z87.891 Personal history of nicotine dependence; Z90.49 Acquired absence of other specified parts of digestive tract; Z87.59 Personal history of other complications of pregnancy, childbirth and the puerperium; W22.09XA Striking against other stationary object, initial encounter
CPT/HCPCS: 73130

== ENCOUNTER → 2017-09-14 | Outpatient (CLI) | payer MEDICAID, BC ==
[~2017-09-14] MED LIST changes: +DOXY100T2 PO
--- NOTE | 2017-09-14 17:33 | Diagnostic Imaging Report ---
INDICATION: Left leg lump. EXAMINATION: Left lower extremity ultrasound. FINDINGS: Survey of the soft tissues of the left lower anterior thigh does not demonstrate any evidence of a discrete mass or pathologic fluid collection. IMPRESSION: Negative ultrasound of the left thigh. Dictated by: Dictated on workstation # [id number]
== END ==
LOC: RAD 17:08
PROVIDERS: ATTEND Nurse Practitioner Family
DX: R22.42 Localized swelling, mass and lump, left lower limb (principal)
CPT/HCPCS: 76881

== ENCOUNTER 2017-09-27 12:45 | Emergency (ER) | payer BC, MEDICAID ==
[~2017-09-27] VITALS: Ht 182.9 cm; Wt 96.6 kg
[~2017-09-27 12:45] MED LIST changes: -DOXY100T2 PO
--- OUTSIDE RECORDS SUMMARY | 2017-09-27 12:53 | XMS REPORT | Continuity of Care Document ---
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 03/17/2012 10:13:00 Document Registration [id number] 03/02/2012 17:50:00 Document Registration [id number] 03/01/2012 09:47:00 Document Registration [id number] 02/28/2012 08:55:00 Document Registration [id number] 01/12/2012 13:03:00 Document Registration [id number] 09/13/2011 19:07:00 Document Registration [id number] 09/03/2011 22:59:00 Document Registration [id number] 07/14/2011 18:52:00 Document Registration [id number] 07/04/2011 10:34:00 Document Registration [id number] 05/25/2011 11:03:00 Document Registration [id number] 05/13/2011 15:23:00 Document Registration [id number] 05/13/2011 14:26:00 Document Registration [id number] 04/22/2011 00:00:00 Document Registration [id number] 03/12/2011 10:25:00 Document Registration [id number] 01/17/2015 04:18:34 ACT Document Registration
[2017-09-27 13:20] LABS: BASOPHILS % (AUTO) 0 % (0-10); EOSINOPHILS # (AUTO) 0.2 10^3/uL (0.0-0.3); EOSINOPHILS % (AUTO) 2 % (0-10); HEMATOCRIT 42 % (35-52); HEMOGLOBIN 14.4 G/DL (11.5-16.0); LYMPHOCYTES # (AUTO) 2.5 X 10^3 (1.0-4.0); LYMPHOCYTES % (AUTO) 32 % (12-44); MEAN CORPUSCULAR HEMOGLOBIN 32 PG (25-34); MEAN CORPUSCULAR HGB CONC 35 G/DL (32-36); MEAN CORPUSCULAR VOLUME 92 FL (80-99); MEAN PLATELET VOLUME 11.9 FL (7.4-10.4); MONOCYTES # (AUTO) 0.7 X 10^3 (0.0-1.0); MONOCYTES % (AUTO) 10 % (0-12); NEUTROPHILS # (AUTO) 4.2 X 10^3 (1.8-7.8); NEUTROPHILS % (AUTO) 55 % (42-75); PLATELET COUNT 258 10^3/uL (130-400); RED BLOOD COUNT 4.55 10^6/uL (4.35-5.85); RED CELL DISTRIBUTION WIDTH 13.8 % (10.0-14.5); WHITE BLOOD COUNT 7.6 10^3/uL (4.3-11.0)
[2017-09-27 13:21] LABS: BILIRUBIN,URINE NEGATIVE (NEGATIVE); CLARITY,URINE CLEAR; COLOR,URINE YELLOW; GLUCOSE, URINE (UA) NEGATIVE (NEGATIVE); KETONES,URINE NEGATIVE (NEGATIVE); LEUKOCYTE ESTERASE ,URINE NEGATIVE (NEGATIVE); NITRITE,URINE NEGATIVE (NEGATIVE); PH,URINE 7 (5-9); PROTEIN,URINE NEGATIVE (NEGATIVE); UROBILINOGEN,URINE NORMAL (NORMAL)
[2017-09-27 13:37] LABS: AMORPHOUS SEDIMENT,UR FEW AMOR URATES /LPF; BACTERIA,URINE NEGATIVE /HPF; SQUAMOUS EPITHELIAL CELL,UR RARE /HPF; WBC,URINE RARE /HPF
[2017-09-27 13:41] LABS: ALANINE AMINOTRANSFERASE 17 U/L (0-55); ALBUMIN 4.1 GM/DL (3.2-4.5); ALKALINE PHOSPHATASE 61 U/L (40-136); BILIRUBIN,TOTAL 0.4 MG/DL (0.1-1.0); BUN/CREATININE RATIO 12; CALCIUM 9.2 MG/DL (8.5-10.1); CARBON DIOXIDE 21 MMOL/L (21-32); CHLORIDE 111 MMOL/L (98-107); CREATININE SERUM 0.78 MG/DL (0.60-1.30); GFR ESTIMATED > 60; GLUCOSE 87 MG/DL (70-105); POTASSIUM 3.9 MMOL/L (3.6-5.0); SODIUM 141 MMOL/L (135-145); TOTAL PROTEIN 6.8 GM/DL (6.4-8.2)
[2017-09-27 14:05] LABS: TSH (THYROID ANALYZER) 1.49 UIU/ML (0.35-4.94)
--- NOTE | 2017-09-27 14:25 | Diagnostic Imaging Report ---
INDICATION: Cough and shortness of breath. PA and lateral views of the chest were obtained. FINDINGS: The heart size, mediastinal configuration, and pulmonary vascularity are within normal limits. There is no pleural effusion, pneumothorax, or pneumonia. The osseous structures are unremarkable. IMPRESSION: No acute cardiopulmonary abnormality. Dictated by: Dictated on workstation # [id number]
[2017-09-27] MEDS ORDERED: FLUT9.9S NS (14:41)
--- NOTE | 2017-09-27 14:42 | ED Cardiac General ---
History of Present Illness General Chief Complaint: Cardiac/General Problems Stated Complaint: SOB,FATIGUE,WEAK,HEART PALPITATIONS Nursing Triage Note: TO ROOM WITH C/O HAVNG PALPATIONS AND FEELING SOA SINCE HICKING IN [place]. Source: patient, old records Exam Limitations: no limitations History of Present Illness Date Seen by Provider: September 27, 2017 Time Seen by Provider: 12:47 Initial Comments This 27-year-old woman presents to the emergency room with complaints of dyspnea and palpitations. She returned from hiking in [place] this past weekend and has felt poorly since. She was very short of breath in [place], beyond what she felt was normal for altitude change. She has a follow-up appointment with cardiology later this week but was feeling so poorly she wanted to come to the ER now. She has some dizziness and shortness of breath has worsened. She takes metoprolol for problems with sinus tachycardia and PVCs. She has had extensive cardiac workup in the past. She also has a loop recorder, and to her knowledge no significant events have been recorded. She also complains of headache, throat congestion (possibly from allergies), and feels dry. Allergies and Home Medications Allergies Coded Allergies: Penicillins (Unverified Allergy, Mild, 09/13/08) Home Medications Fluticasone Propionate 9.9 Ml [place].susp, 2 SPRAY NS DAILY Prescribed by: TIM LEGGETT on 09/27/17 1441 Metoprolol Succinate 25 Mg Tab.er.24h, Unknown Dose PO DAILY, (Reported) Patient Home Medication List Home Medication List Reviewed: Yes Review of Systems Constitutional: no symptoms reported EENTM: No Symptoms Reported Respiratory: See HPI Cardiovascular: See HPI Gastrointestinal: No Symptoms Reported Genitourinary: No Symptoms Reported Musculoskeletal: no symptoms reported Skin: no symptoms reported Psychiatric/Neurological: No Symptoms Reported Endocrine: No Symptoms Reported Past Mtsxzzi-Kkvxwt-Lvawho Hx Patient Social History Alcohol Use: Occasionally Uses Number of Drinks Today: AA Alcohol Beverage of Choice: Beer Recreational Drug Use: No Smoking Status: Current Someday Smoker Type Used: Cigarettes Former Smoker, Quit: May 30, 2017 2nd Hand Smoke Exposure: No Recent Foreign Travel: No Contact w/Someone Who Travel: No Recent Infectious Disease Expo: No Recent Hopitalizations: No Immunizations Up To Date Tetanus Booster (TDap): More than 5yrs PED Vaccines UTD: No Date of Influenza Vaccine: Feb 13, 2015 Seasonal Allergies Seasonal Allergies: No Past Medical History Surgeries: Yes (egd, colonoscopy) Appendectomy, Section, Gallbladder Respiratory: No Currently Using CPAP: No Currently Using BIPAP: No Cardiac: Yes (SEES MIGUEL ANGEL HONG DUE TO MOTHER HAVING CHF AT YOUNG AGE) Heart Murmur, Hypertension, Irregular Heartbeat Neurological: No Reproductive Disorders: Yes Female Reproductive Disorders: Denies Sexually Transmitted Disease: No HIV/AIDS: No Genitourinary: No Gastrointestinal: Yes Gastroesophageal Reflux Musculoskeletal: No Endocrine: Yes (undiagnosed thyriod issue, due to see a county health officer) HEENT: No Loss of Vision: Denies Hearing Impairment: Denies Cancer: No Psychosocial: Yes Anxiety, Depression Integumentary: No Blood Disorders: No Adverse Reaction/Blood Tranf: No Family Medical History Cardiovascular disease 19 MOTHER, G8 BROTHER Hypercholesterolemia 19 MOTHER, Hypertension 19 MOTHER, Thyroid disease G8 BROTHER No Pertinent Family Hx, Diabetes Physical Exam Vital Signs Vital Signs - First Documented 09/27/17 09/27/17 12:45 15:01 Temp 98.0 Pulse 58 Resp 18 B/P (MAP) 122/73 (89) Pulse Ox 82 O2 Delivery Room Air Capillary Refill : Less Than 3 Seconds General Appearance: No Apparent Distress, WD/WN HEENT: PERRL/EOMI, Normal ENT Inspection Neck: Normal Inspection Respiratory: Normal Breath Sounds, No Accessory Muscle Use, No Respiratory Distress Cardiovascular: No Edema, No Murmur, Normal Peripheral Pulses, Tachycardia ( Mild) Gastrointestinal: Non Tender, Soft Extremity: Normal Capillary Refill, Normal Inspection, Non Tender, No Calf Tenderness, No Pedal Edema, Other (Negative Briana) Neurologic/Psychiatric: Alert, Oriented x3, No Motor/Sensory Deficits, Normal 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, 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 Norm as Tested Skin: Normal Color, Warm/Dry Progress/Results/Core Measures Results/Orders Lab Results Laboratory Tests Test 09/27/17 13:11 09/27/17 13:14 Range/Units White Blood Count 7.6 4.3-11.0 10^3/uL Red Blood Count 4.55 4.35-5.85 10^6/uL Hemoglobin 14.4 11.5-16.0 G/DL Hematocrit 42 35-52 % Mean Corpuscular Volume 92 80-99 FL Mean Corpuscular Hemoglobin 32 25-34 PG Mean Corpuscular Hemoglobin Concent 35 32-36 G/DL Red Cell Distribution Width 13.8 10.0-14.5 % Platelet Count 258 130-400 10^3/uL Mean Platelet Volume 11.9 H 7.4-10.4 FL Neutrophils (%) (Auto) 55 42-75 % Lymphocytes (%) (Auto) 32 12-44 % Monocytes (%) (Auto) 10 0-12 % Eosinophils (%) (Auto) 2 0-10 % Basophils (%) (Auto) 0 0-10 % Neutrophils # (Auto) 4.2 1.8-7.8 X 10^3 Lymphocytes # (Auto) 2.5 1.0-4.0 X 10^3 Monocytes # (Auto) 0.7 0.0-1.0 X 10^3 Eosinophils # (Auto) 0.2 0.0-0.3 10^3/uL Basophils # (Auto) 0.0 0.0-0.1 10^3/uL D-Dimer 0.29 0.00-0.49 UG/ML Sodium Level 141 135-145 MMOL/L Potassium Level 3.9 3.6-5.0 MMOL/L Chloride Level 111 H 98-107 MMOL/L Carbon Dioxide Level 21 21-32 MMOL/L Anion Gap 9 5-14 MMOL/L Blood Urea Nitrogen 9 7-18 MG/DL Creatinine 0.78 0.60-1.30 MG/DL Estimat Glomerular Filtration Rate > 60 BUN/Creatinine Ratio 12 Glucose Level 87 70-105 MG/DL Calcium Level 9.2 8.5-10.1 MG/DL Magnesium Level 2.0 1.8-2.4 MG/DL Total Bilirubin 0.4 0.1-1.0 MG/DL Aspartate Amino Transf (AST/SGOT) 18 5-34 U/L Alanine Aminotransferase (ALT/SGPT) 17 0-55 U/L Alkaline Phosphatase 61 40-136 U/L Troponin I < 0.30 <0.30 NG/ML Total Protein 6.8 6.4-8.2 GM/DL Albumin 4.1 3.2-4.5 GM/DL TSH [place] Testing 1.49 0.35-4.94 UIU/ML Serum Test, Qualitative NEGATIVE NEGATIVE Urine Color YELLOW Urine Clarity CLEAR Urine pH 7 5-9 Urine Specific Eldred 1.005 L 1.016-1.022 Urine Protein NEGATIVE NEGATIVE Urine Glucose (UA) NEGATIVE NEGATIVE Urine Ketones NEGATIVE NEGATIVE Urine Nitrite NEGATIVE NEGATIVE Urine Bilirubin NEGATIVE NEGATIVE Urine Urobilinogen NORMAL NORMAL MG/DL Urine Leukocyte Esterase NEGATIVE NEGATIVE Urine RBC (Auto) NEGATIVE NEGATIVE Urine RBC NONE /HPF Urine WBC RARE /HPF Urine Squamous Epithelial Cells RARE /HPF Urine Crystals NONE /LPF Urine Amorphous Sediment FEW SEGUN URATES H /LPF Urine Bacteria NEGATIVE /HPF Urine Casts NONE /LPF Urine Mucus NEGATIVE /LPF Urine Culture Indicated NO My Orders Orders - TIM WAKEFIELD MD Ekg Tracing (09/27/17 12:50) Monitor-Rhythm Ecg Trace Only (09/27/17 12:50) Cbc With Automated Diff (09/27/17 13:03) Comprehensive Metabolic Panel (09/27/17 13:03) Fibrin Degradation Products (09/27/17 13:03) Magnesium (09/27/17 13:03) Thyroid Analyzer (09/27/17 13:03) Troponin I (09/27/17 13:03) Ua Culture If Indicated (09/27/17 13:03) Chest Pa/Lat (2 View) (09/27/17 13:03) Saline Lock/Iv-Start (09/27/17 13:03) Hcg,Qualitative Serum (09/27/17 13:03) Vital Signs/I&O 09/27/17 09/27/17 12:45 15:01 Temp 98.0 Pulse 58 82 Resp 18 18 B/P (MAP) 122/73 (89) 117/67 Pulse Ox 82 O2 Delivery Room Air Blood Pressure Mean: 89 Progress Progress Note : Progress Note Workup was unremarkable. Patient had no arrhythmias or sustained tachycardia. There was no evidence for dehydration in her blood work were UA. Patient was given reassurance and was discharged home to follow-up with Dr. Robison. See discharge instructions. Symptoms may be in part due to altitude adjustment. Initial ECG Impression Date: September 27, 2017 Initial ECG Impression Time: 12:52 Initial ECG Rate: 85 Initial ECG Rhythm: Normal Sinus Initial ECG Intervals: Normal Initial ECG Impression: Normal Comment I will sinus rhythm with no ST elevation or depression. No abnormal intervals or axis deviation. Diagnostic Imaging Diagonstic Imaging: Xray Plain Films/CT/US/NM/MRI: chest Comments Chest x-ray viewed by me and report reviewed. See report below: NAME: MIREYA GOODE [facility] REC#: [id number] PT STATUS: REG ER : 1990 PHYSICIAN: TIM WAKEFIELD MD ADMIT DATE: 09/27/17/ER Signed Date of Exam: 09/27/17 CHEST PA/LAT (2 VIEW) INDICATION: Cough and shortness of breath. PA and lateral views of the chest were obtained. FINDINGS: The heart size, mediastinal configuration, and pulmonary vascularity are within normal limits. There is no pleural effusion, pneumothorax, or pneumonia. The osseous structures are unremarkable. IMPRESSION: No acute cardiopulmonary abnormality. Dictated by: Dictated on workstation # [id number] Dict: 09/27/17 1419 Trans: 09/27/17 1457 Interpreted by: ALEXX MCALLISTER MD Electronically signed by: ALEXX MCALLISTER MD 09/27/17 1457 Departure Impression Primary Impression: Palpitations Additional Impressions: Dyspnea Qualified Codes: R06.00 - Dyspnea, unspecified Acute headache Qualified Codes: R51 - Headache Congestion of throat Disposition: 01 HOME, SELF-CARE Condition: Stable Departure-Patient Inst. Decision time for Depature: 14:30 Referrals: JULIETTE SORIA MD (PCP/Family) Primary Care Physician Patient Instructions: Palpitations (DC) Add. Discharge Instructions: Keep your follow-up appointment with Dr. Robison. Your symptoms may be in part due to altitude adjustment, allergies, and/or viral illness. Continue with your medications as previously prescribed You may safely take lbad-ohg-jtisatx allergy medicine such as Claritin ( loratadine) or Zyrtec (cetirizine) for allergy symptoms. For nasal congestion and drainage down your throat, a nasal steroid spray such as Flonase (fluticasone) may be helpful. For headache you may take ibuprofen up to 600 mg every 6 hours as needed and/or Tylenol (acetaminophen) up to 1000 mg every 6 hours. Stay well-hydrated with clear liquids. All discharge instructions reviewed with patient and/or family. Voiced understanding. Scripts Fluticasone Propionate (Flonase Allergy Relief) 9.9 Ml [place].susp 2 SPRAY NS DAILY, #1 EACH Prov: TIM WAKEFIELD MD 09/27/17 Work/School Note: Work Release Form Date Seen in the Emergency Department: September 27, 2017 Return to Work: September 28, 2017 Restrictions: No Restrictions Copy Copies To 1: DESMOND ROBISON MD, JOSHUA T MD September 27, 2017 14:42
[2017-09-27 15:01] VITALS: BP 117/67
== END 2017-09-27 15:01 | disposition home or self-care (01) ==
LOC: EDUNIT# 12:45 → ER 12:47
DX: R00.2 Palpitations (principal); R06.00 Dyspnea, unspecified; R51 Headache; R09.89 Other specified symptoms and signs involving the circulatory and respiratory systems; I10 Essential (primary) hypertension; K21.9 Gastro-esophageal reflux disease without esophagitis; F41.9 Anxiety disorder, unspecified; F32.9 Major depressive disorder, single episode, unspecified; F17.210 Nicotine dependence, cigarettes, uncomplicated; Z82.49 Family history of ischemic heart disease and other diseases of the circulatory system; Z87.59 Personal history of other complications of pregnancy, childbirth and the puerperium; Z90.49 Acquired absence of other specified parts of digestive tract; Z88.0 Allergy status to penicillin; Z79.51 Long term (current) use of inhaled steroids
CPT/HCPCS: 36415; 71046; 80053; 81000; 83735; 84443; 84484; 84703; 85025; 85379; 93005; 93041

== ENCOUNTER → 2017-10-05 | Outpatient (CLI) | payer BC, MEDICAID ==
[~2017-10-05] MED LIST changes: +DOXY100T2 PO
== END ==
LOC: CARD 13:44
PROVIDERS: ATTEND Physician Assistant
DX: R07.89 Other chest pain (principal); I10 Essential (primary) hypertension; I49.3 Ventricular premature depolarization; F41.9 Anxiety disorder, unspecified
CPT/HCPCS: 93017; 93306

== ENCOUNTER 2017-10-27 18:03 | Emergency (ER) | payer OTHER, MEDICAID ==
[~2017-10-27] VITALS: Ht 190.5 cm; Wt 96.6 kg
[~2017-10-27 18:03] MED LIST changes: -DOXY100T2 PO
--- NOTE | 2017-10-27 20:02 | ED Integumentary General ---
General Chief Complaint: Skin/Wound Problems Stated Complaint: LEG INFECTION Nursing Triage Note: States that she fell down steps . Was fgiven 3 doses of Rocephin and oral antibiotics. Leg began to swell and turn red. Was seen at Urgent Care last Tuesday and was given more Rocephin and Keflex. Leg is starting to swell and turn red. Talked to Dr Norton today and was told she needed to be started on iv antibiotics but they could not see here- she should come to ER to get them started History of Present Illness Date Seen by Provider: Oct 27, 2017 Time Seen by Provider: 19:45 Initial Comments 27-year-old female reports falling on sustaining abrasions to her right lower leg. She has gotten Rocephin shots on 2 different occasions and is on her second round of Keflex. She is also using his Bactroban and keeps it covered at all times. She has been ambulatory, moving homes and not keeping it elevated. She was evaluated at [facility] who told her she could develop Sepsis. Timing/Duration: getting worse Severity: mild Location: extremities (right lower) Associated Symptoms: denies symptoms Allergies and Home Medications Allergies Coded Allergies: Penicillins (Unverified Allergy, Mild, 10/27/17) Home Medications Doxycycline Hyclate 100 Mg Tablet, 100 MG PO BID Prescribed by: ALINE TOPETE on 10/27/172036 Fluticasone Propionate 9.9 Ml [place].susp, 2 SPRAY NS DAILY Prescribed by: TIM LEGGETT on 09/27/17 144 Metoprolol Succinate 25 Mg Tab.er.24h, Unknown Dose PO DAILY, (Reported) Sulfamethoxazole/Trimethoprim 1 Each Tablet, 1 EACH PO BID Prescribed by: ALINE TOPETE on 10/27/172036 Patient Home Medication List Home Medication List Reviewed: Yes Constitutional: no symptoms reported, see HPI Skin: see HPI, change in color, lesions All Other Systems Reviewed Negative Unless Noted: Yes Past Rvffqil-Siield-Caemmd Hx Past Med/Social Hx: Reviewed Nursing Past Med/Soc Hx Patient Social History Alcohol Use: Occasionally Uses Number of Drinks Today: AA Alcohol Beverage of Choice: Beer Recreational Drug Use: No Type Used: Cigarettes Former Smoker, Quit: May 30, 2017 2nd Hand Smoke Exposure: No Recent Foreign Travel: No Contact w/Someone Who Travel: No Recent Infectious Disease Expo: No Recent Hopitalizations: No Immunizations Up To Date Tetanus Booster (TDap): More than 5yrs PED Vaccines UTD: No Date of Influenza Vaccine: Feb 13, 2015 Seasonal Allergies Seasonal Allergies: No Past Medical History Surgeries: Yes (egd, colonoscopy) Appendectomy, Section, Gallbladder Respiratory: No Currently Using CPAP: No Currently Using BIPAP: No Cardiac: Yes (SEES MIGUEL ANGEL PRECAUTIONARY DUE TO MOTHER HAVING CHF AT YOUNG AGE) Hypertension, Irregular Heartbeat Neurological: No Reproductive Disorders: Yes Female Reproductive Disorders: Denies Sexually Transmitted Disease: No HIV/AIDS: No Genitourinary: No Gastrointestinal: Yes Gastroesophageal Reflux Musculoskeletal: No Endocrine: No HEENT: No Loss of Vision: Denies Hearing Impairment: Denies Cancer: No Psychosocial: Yes Anxiety, Depression Integumentary: No Blood Disorders: No Adverse Reaction/Blood Tranf: No Family Medical History Cardiovascular disease 19 MOTHER, G8 BROTHER Hypercholesterolemia 19 MOTHER, Hypertension 19 MOTHER, Thyroid disease G8 BROTHER No Pertinent Family Hx, Diabetes Physical Exam Vital Signs Vital Signs - First Documented 10/27/17 10/27/17 18:49 21:24 Temp 97.6 Pulse 86 Resp 14 B/P (MAP) 124/86 (99) Pulse Ox 98 O2 Delivery Room Air Capillary Refill : Less Than 3 Seconds General Appearance: WD/WN, no apparent distress Cardiovascular: normal peripheral pulses, regular rate, rhythm Respiratory: chest non-tender, lungs clear Extremities: normal range of motion, non-tender, normal inspection, normal capillary refill Neurologic/Psychiatric: no motor/sensory deficits, alert, normal mood/affect, oriented x 3 Skin: normal color, warm/dry, other (early granulation noted to wound on right lower extremity. There is marked erythema around the wound site. Trace warmth, no induration or fluctuance. No active drainage at this time.) Skin Problem Location: lower extremities (right lower leg) Lymphatic: no adenopathy Progress/Results/Core Measures Results/Orders My Orders Orders - ALINE TOPETE Tibia/Fibula, Right, 2 Views (10/27/17 19:57) Ceftriaxone Injection (Rocephin Injectio (10/27/17 20:30) Lidocaine 1% Inj 50 Ml (Xylocaine 1% Inj (10/27/17 20:30) Lidocaine Pf 1% 5 Ml Injection (Xylocain (10/27/17 20:47) Lidocaine 1% Inj 20 Ml (Xylocaine 1% Inj (10/27/17 21:16) Medications Given in ED Current Medications Medications Dose Ordered Sig/Jamey Route Start Time Stop Time Status Last Admin Dose Admin Ceftriaxone Sodium 1,000 mg ONCE ONCE IM 10/27/17 20:30 10/27/17 20:31 DC 10/27/17 21:10 1,000 MG Lidocaine HCl 2.1 ml ONCE ONCE IJ 10/27/17 20:30 10/27/17 20:31 DC 10/27/17 21:10 2.1 ML Vital Signs/I&O 10/27/17 10/27/17 18:49 21:24 Temp 97.6 Pulse 86 64 Resp 14 18 B/P (MAP) 124/86 (99) 126/70 Pulse Ox 98 O2 Delivery Room Air Blood Pressure Mean: 99 Diagnostic Imaging Diagonstic Imaging: Xray Plain Films/CT/US/NM/MRI: other (Right Tib/Fib) Comments NAME: MIREYA GOODE [facility] REC#: [id number] PT STATUS: REG ER : 1990 PHYSICIAN: ALINE TOPETE ADMIT DATE: 10/27/17/ER Draft Date of Exam:10/27/17 TIBIA/FIBULA, RIGHT, 2 VIEWS INDICATION: Fell two weeks ago. Swelling in the leg with redness despite antibiotics. EXAMINATION: Right tibia and fibula, 10/27/2017. FINDINGS: Two views of the tibia and fibula. No acute osseous abnormality is appreciated. No dislocations or fractures. Soft tissues are grossly unremarkable. IMPRESSION: Unremarkable examination. Dictated on workstation # [id number] Dict: 10/27/172026 Trans: 10/27/172036 [facility] [phone] Interpreted by: JOHN DOWNING MD Electronically signed by: Departure Impression Primary Impression: Traumatic ulcer of right lower extremity, limited to breakdown of skin with infection Additional Impression: Cellulitis of right lower extremity Disposition: 01 HOME, SELF-CARE Condition: Stable Departure-Patient Inst. Decision time for Depature: 21:00 Referrals: JULIETTE NORTON MD (PCP/Family) Primary Care Physician Patient Instructions: Cellulitis (Skin Infection), Adult (DC) Add. Discharge Instructions: Keep right lower extremity elevated higher than the level of your heart. Discontinue the Keflex and begin taking the Bactrim and doxycycline. Clean wound with peroxide and apply use of process and 3 times daily. Cover wound with Band-Aid when away from home, leave open to air when at home. Follow-up with your primary care provider in one week if symptoms are not improving or worsen. Return to emergency department for new, urgent health care needs. All discharge instructions reviewed with patient and/or family. Voiced understanding. Scripts Doxycycline Hyclate (Doxycycline Hyclate) 100 Mg Tablet 100 MG PO BID, #14 TAB 0 Refills Prov: ALINE TOPETE 10/27/17 Sulfamethoxazole/Trimethoprim (Bactrim Ds Tablet) 1 Each Tablet 1 EACH PO BID, #14 TAB 0 Refills Prov: ALINE TOPETE 10/27/17 Copy Copies To 1: JULIETTE NORTON MD, AMY ARNP Oct 27, 2017 20:02
[2017-10-27] MEDS ORDERED: cefTRIAXone 1 GM (ROCEPHIN) VIAL IM ONE (20:30)
[2017-10-27] MEDS ORDERED: LIDOCAINE 1% INJ 50 ML (XYLOCAINE) VIAL IJ ONE (20:30)
[2017-10-27] MEDS ORDERED: DOXY100T2 PO (20:37)
[2017-10-27] MEDS ORDERED: SULF1TAB35 PO (20:37)
--- NOTE | 2017-10-27 20:37 | Diagnostic Imaging Report ---
INDICATION: Fell two weeks ago. Swelling in the leg with redness despite antibiotics. EXAMINATION: Right tibia and fibula, 10/27/2017. FINDINGS: Two views of the tibia and fibula. No acute osseous abnormality is appreciated. No dislocations or fractures. Soft tissues are grossly unremarkable. IMPRESSION: Unremarkable examination. Dictated by: Dictated on workstation # [id number]
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
[2017-10-27] MEDS ORDERED: LIDOCAINE PF 1% 5 ML (XYLOCAINE) AMP ONE (20:47)
[2017-10-27] MEDS ORDERED: LIDOCAINE 1% INJ 20 ML 20 ML VIAL ONE (21:16)
[2017-10-27 21:24] VITALS: BP 126/70
== END 2017-10-27 21:23 | disposition home or self-care (01) ==
LOC: EDUNIT# 18:03 → ER 18:05
DX: L97.911 Non-pressure chronic ulcer of unspecified part of right lower leg limited to breakdown of skin (principal); L03.115 Cellulitis of right lower limb; I10 Essential (primary) hypertension; K21.9 Gastro-esophageal reflux disease without esophagitis; F41.9 Anxiety disorder, unspecified; F32.9 Major depressive disorder, single episode, unspecified; Z82.49 Family history of ischemic heart disease and other diseases of the circulatory system; Z88.0 Allergy status to penicillin; Z79.51 Long term (current) use of inhaled steroids; Z87.891 Personal history of nicotine dependence; Z90.89 Acquired absence of other organs; Z87.59 Personal history of other complications of pregnancy, childbirth and the puerperium
CPT/HCPCS: 73590; 96372